=== PATIENT | male | born 1955 | race Caucasian/White ===

== ENCOUNTER 2021-05-01 00:23 | Emergency (ER) | payer MEDICARE, SELFPAY ==
[2021-05-01 01:21] VITALS: BP 163/92; PULSE 69; RESP 16; TEMP 36.6; O2SAT 96; BMI 30.5
[2021-05-01 02:25] VITALS: BP 145/71; PULSE 70; RESP 16; TEMP 36.8; O2SAT 95
== END 2021-05-01 03:01 | disposition left against medical advice (07) ==
PROVIDERS: Emergency Provider Emergency Medicine; PCP Internal Medicine
DX: M25.562 Pain in left knee (principal)
CPT/HCPCS: 99283

== ENCOUNTER 2021-12-26 06:57 | Emergency (ER) | payer MEDICARE, SELFPAY ==
--- NOTE | ~2021-12-26 | XR_ITS ---
EXAMINATION: XR CHEST CLINICAL INFORMATION: Cough COMPARISON: Chest 09/22/2017 TECHNIQUE: 2 views of the chest were obtained. FINDINGS: No significant abnormality is noted involving the heart, lungs, mediastinum, bony thorax or soft tissues. XR/XR chest 2V IMPRESSION: Unremarkable chest examination.
[2021-12-26 07:02] VITALS: BP 149/76; PULSE 87; RESP 22; TEMP 38.3; O2SAT 97; BMI 27.4
[2021-12-26 07:53] LABS: Influenza A PCR NEGATIVE (Negative); Influenza B PCR NEGATIVE (Negative); Resp Syncy Virus RNA Qual PCR NEGATIVE (Negative); SARS COV2 PCR INHOUSE NEGATIVE (Negative)
--- NOTE | 2021-12-26 08:46 | ECG_ITS ---
Test Reason : cp when coughing Blood Pressure : / mmHG Vent. Rate : 073 BPM Atrial Rate : 073 BPM P-R Int : 152 ms QRS Dur : 098 ms QT Int : 384 ms P-R-T Axes : 030 011 051 degrees QTc Int : 423 ms Normal sinus rhythm Normal ECG When compared with ECG of 22-SEP-2017 09:48, No significant change was found Referred By: Lisa Gipson Electronically Signed By:ABRAN REYES
[2021-12-26] MEDS: Ibuprofen 600 MG TABLET PO (08:53)
[2021-12-26] MEDS: Albuterol/Iprat 2.5/0.5MG 3 ML AMPUL.NEB INHALE (08:57)
[2021-12-26 08:58] VITALS: PULSE 87; RESP 18; O2SAT 97
[2021-12-26] MEDS: Benzonatate 100 MG CAPSULE 200 MG PO (09:11)
[2021-12-26 09:12] LABS: MANUAL DIFF FLAG NO
[2021-12-26 09:14] LABS: Basophils Percent Auto 0.4 % (0-2); Eosinophils Absolute Auto 0.3 X10*3/uL (0.0-0.4); Eosinophils Percent Auto 2.6 % (0-4); Hematocrit 37.9 % (42.0-52.0); Hemoglobin 12.2 g/dl (14.0-18.0); Imm Gran Abs Auto 0.04 X10*3/uL (0.00-0.03); Imm Gran Pct Auto 0.4 % (0.0-0.4); Lymphocytes Absolute Auto 1.9 X10*3/uL (1.2-4.9); Lymphocytes Percent Auto 16.9 % (20-40); Mean Corpuscular HGB Conc 32.2 g/dl (31.0-36.0); Mean Corpuscular Hemoglobin 26.5 pg (27.0-33.0); Mean Corpuscular Volume 82.4 fL (80.0-98.0); Mean Platelet Volume 8.8 fL (9.4-12.4); Monocytes Absolute Auto 1.1 X10*3/uL (0.1-1.2); Monocytes Percent Auto 9.7 % (2-11); Neutrophils Absolute Auto 7.9 x10*3/uL (2.0-8.3); Platelet Count 170 X10*3/uL (160-400); Red Cell Distribution Width 15.7 % (11.0-16.0); White Blood Count 11.2 X10*3/uL (4.8-10.8)
--- NOTE | 2021-12-26 09:27 | ED.GENADULT ---
HPI - General Adult General Chief complaint: General Medical <MARILEE Cabrera - Last Filed: 12/26/21 12:40> Stated complaint: cough congestion <MARILEE Cabrera Last Filed: 12/26/21 12:40> Time Seen by Provider: 12/26/21 07:08 <MARILEE Cabrera - Last Filed: 12/26/21 12:40> Source: patient <MARILEE Cabrera Last Filed: 12/26/21 12:40> Mode of arrival: ambulatory <MARILEE Cabrera Last Filed: 12/26/21 12:40> History of Present Illness HPI narrative: 66-year-old male with a PMHx HLD, HTN, CKD, TIA, CAD s/p stent, presenting to the ED complaining of dry cough, congestion, rhinorrhea, sore throat, SOB, and rib pain when coughing x1 week. Reports SOB worse on exertion and when lying flat. States symptoms began after he kissed his sick grandson. Denied known fever BARYTES GRINDER, chest pain, abdominal pain, nausea/vomiting, pedal edema, calf pain, recent travel, ear pain, pain with inspiration <MARILEE Cabrera Last Filed: 12/26/21 12:40> Onset (ago): week(s) <MARILEE Cabrera - Last Filed: 12/26/21 12:40> Related Data Home medications: Previous Rx's Medication Instructions Recorded albuterol sulfate 90 mcg/actuation 2 puff INHALATION Q4-6H PRN #6.7 g 12/26/21 aerosol inhaler azithromycin 250 mg tablet See Rx Instructions .ROUTE 12/26/21 .COMPLEX #6 tab benzonatate 200 mg capsule 200 mg PO TID PRN #20 cap 12/26/21 fluticasone propionate 50 2 spray INTRANASAL DAILY #16 g 12/26/21 mcg/actuation nasal spray,suspension (Flonase Allergy Relief) <MARILEE Cabrera Last Filed: 12/26/21 12:40> Allergies/adverse reactions: Allergies Allergy/AdvReac Type Severity Reaction Status Date / Time acetaminophen [Vicodin] Allergy Unknown Rash Verified 05/01/21 01:20 hydrocodone [Vicodin] Allergy Unknown Rash Verified 05/01/21 01:20 From VICODIN Allergy Mild RASH Uncoded 07/01/20 14:39 <MARILEE Cabrera - Last Filed: 12/26/21 12:40> Review of Systems Review of Systems: Constitutional: + Fever, No Chills, No Night Sweats, + Fatigue, No Malaise ENT/Mouth: No Hearing loss, No Ear Pain, + Nasal Congestion, No Sinus Pain, No Hoarseness, + sore throat, + Rhinorrhea, No Swallowing Difficulty Eyes: No Eye Pain, No Swelling, No Discharge, No Vision Changes Cardiovascular: + Chest Pain when coughing, + SOB, + Dyspnea on Exertion, + Orthopnea, No Edema, No Palpitations Respiratory: + Cough, No Sputum, No Wheezing, No Dyspnea Gastrointestinal: No Nausea, No Vomiting, No Diarrhea, No Constipation, No Abdominal pain Genitourinary: No Dysuria, No Urinary Frequency, No Urgency, No Flank Pain Musculoskeletal: No joint pain, No Myalgias, No Joint Swelling Skin: No Skin Lesions, No rash Neuro: No Weakness, No Numbness, No Headache <MARILEE Cabrera - Last Filed: 12/26/21 12:40> Yes all other systems are reviewed and are negative <MARILEE Cabrera - Last Filed: 12/26/21 12:40> [facility] Past Medical History Attestation statement: The following information was validated with the patient. <MARILEE Cabrera - Last Filed: 12/26/21 12:40> Medical History: Medical History High cholesterol Hypertension Pedal edema Renal failure TIA (transient ischemic attack) <MARILEE Cabrera - Last Filed: 12/26/21 12:40> Surgical History: Surgical History Previous back surgery Stented coronary artery <MARILEE Cabrera - Last Filed: 12/26/21 12:40> Physical Exam ED Vital Signs: Vital Signs - 24 hr 12/26/21 07:02 12/26/21 08:58 12/26/21 10:48 Temperature 101 F H Pulse Rate 87 87 70 Respiratory Rate 22 H 18 18 Blood Pressure 149/76 H 121/65 Pulse Oximetry 97 94 BMI result Body Mass Index 27.4 <MARILEE Cabrera - Last Filed: 12/26/21 12:40> Const General: cooperative, healthy appearing, no acute distress, alert and awake <MARILEE Cabrera - Last Filed: 12/26/21 12:40> Orientation/consciousness: patient oriented x3 <MARILEE Cabrera - Last Filed: 12/26/21 12:40> Limitations: no limitations <MARILEE Cabrera - Last Filed: 12/26/21 12:40> HENMT Head: Yes normal to inspection <MARILEE Cabrera - Last Filed: 12/26/21 12:40> Ears: hearing grossly normal bilaterally, external ears normal, TM's normal bilaterally and mastoids normal <MARILEE Cabrera - Last Filed: 12/26/21 12:40> General nose exam: Normal external nose present <MARILEE Cabrera - Last Filed: 12/26/21 12:40> Face and sinus: Yes normal facial exam <MARILEE Cabrera - Last Filed: 12/26/21 12:40> Mouth: Normal oral and palatal mucosa present <MARILEE Cabrera - Last Filed: 12/26/21 12:40> Throat: Yes posterior oropharynx normal, Yes tonsils normal, Yes uvula midline and No uvula laterally displaced <MARILEE Cabrera - Last Filed: 12/26/21 12:40> Eyes General: appearance normal, both eyes and all related structures <MARILEE Cabrera - Last Filed: 12/26/21 12:40> EOM: EOMs intact bilaterally <MARILEE Cabrera - Last Filed: 12/26/21 12:40> Neck Neck: Yes normal visual inspection and Yes no meningeal signs <MARILEE Cabrera - Last Filed: 12/26/21 12:40> Resp Effort & Inspection: normal respiratory effort and no respiratory distress <MARILEE Cabrera - Last Filed: 12/26/21 12:40> Auscultation: clear to auscultation bilaterally, no rales, no rhonchi and no wheezes <MARILEE Cabrera - Last Filed: 12/26/21 12:40> Cardio Rate: regular rate <MARILEE Cabrera - Last Filed: 12/26/21 12:40> Heart sounds: S1 normal heart sound present and S2 normal heart sound present <MARILEE Cabrera - Last Filed: 12/26/21 12:40> GI Inspection: Yes normal to inspection <MARILEE Cabrera - Last Filed: 12/26/21 12:40> Palpation (GI): Soft to palpation, nontender, no guarding and not rigid <MARILEE Cabrera - Last Filed: 12/26/21 12:40> Skin Rashes: no rashes <MARILEE Cabrera - Last Filed: 12/26/21 12:40> Wounds: no wounds <MARILEE Cabrera - Last Filed: 12/26/21 12:40> Neuro General: patient oriented x3 and no meningeal signs <MARILEE Cabrera - Last Filed: 12/26/21 12:40> Gait exam (Neuro): Normal gait present <MARILEE Cabrera - Last Filed: 12/26/21 12:40> Extrem General: Yes normal to inspection, Yes no pedal edema and Yes no calf tenderness <MARILEE Cabrera - Last Filed: 12/26/21 12:40> Course Course Course Narrative: -COVID-19/influenza/RSV negative -CXR unremarkable -0934--mild leukocytosis of 11.2, troponin 7.6 > will obtain 3 hour repeat -1236--repeat troponin equivocal, mi unlikely. Results discussed with patient including worrisome signs and symptoms and strict return precautions and need close follow-up with PCP, he verbalized understanding and feel safe for discharge home at this time <MARILEE Cabrera - Last Filed: 12/26/21 12:40> Medical Decision Making MDM Narrative Medical decision making narrative: 66-year-old male with a PMHx HLD, HTN, CKD, TIA, CAD s/p stent, presenting to the ED complaining of dry cough, congestion, rhinorrhea, sore throat, SOB, and rib pain when coughing x1 week. On exam febrile, tachypneic likely from fever, NAD/nontoxic, lungs CTA, abdomen soft nontender, no pedal edema/calf tenderness. Concern for viral syndrome including COVID-19 and influenza vs bronchitis vs pneumonia. Low concern for ACS/PE. Low concern for severe sepsis Plan: COVID-19 testing, influenza testing, rapid strep, labs, CXR, DuoNeb <MARILEE Cabrera - Last Filed: 12/26/21 12:40> Medical Records Medical records reviewed: Yes I reviewed the patient's medical records. <MARILEE Cabrera - Last Filed: 12/26/21 12:40> Lab Data Lab results reviewed: Yes I reviewed the patient's lab results. <MARILEE Cabrera - Last Filed: 12/26/21 12:40> Result diagrams: : 12/26/21 09:07 12/26/21 09:07 <MARILEE Cabrera - Last Filed: 12/26/21 12:40> Labs: Lab Results 12/26/21 12/26/21 12/26/21 Range/Units 07:08 09:07 09:07 WBC 11.2 H (4.8-10.8) X10*3/uL RBC 4.60 (4.60-5.80) X10*6/uL Hgb 12.2 L (14.0-18.0) g/dl Hct 37.9 L (42.0-52.0) % MCV 82.4 (80.0-98.0) fL MCH 26.5 L (27.0-33.0) pg MCHC 32.2 (31.0-36.0) g/dl RDW 15.7 (11.0-16.0) % Plt Count 170 (160-400) X10*3/uL MPV 8.8 L (9.4-12.4) fL Immature Gran % (Auto) 0.4 (0.0-0.4) % Neut % (Auto) 70.0 (45-73) % Lymph % (Auto) 16.9 L (20-40) % [place] % (Auto) 9.7 (2-11) % Eos % (Auto) 2.6 (0-4) % Baso % (Auto) 0.4 (0-2) % Lymph # (Auto) 1.9 (1.2-4.9) X10*3/uL [place] # (Auto) 1.1 (0.1-1.2) X10*3/uL Eos # (Auto) 0.3 (0.0-0.4) X10*3/uL Baso # (Auto) 0.0 (0.0-0.2) X10*3/uL Abs Immat Gran (auto) 0.04 H (0.00-0.03) X10*3/uL Absolute Neuts (auto) 7.9 (2.0-8.3) x10*3/uL Absolute Nucleated RBC 0.000 (0.0-0.012) X10*3/uL Nucleated RBC % (auto) 0.0 (0.0-0.2) /100WBC Sodium 139 (135-145) mmol/L Potassium 4.2 (3.3-5.1) mmol/L Chloride 102 (96-108) mmol/L Carbon Dioxide 29 (22-29) mmol/L Anion Gap 12 (12-20) BUN 11 (9-16) mg/dL Creatinine 1.05 (0.5-1.4) mg/dL Estim Creat Clear Calc 65.4 Estimated GFR > 60 Random Glucose 121 H (60-115) mg/dL Calcium 9.5 (8.4-10.2) mg/dL Magnesium 1.7 (1.6-2.6) mg/dL Total Bilirubin 0.6 (0.0-1.0) mg/dL Direct Bilirubin 0.3 (0.0-0.5) mg/dL AST 14 (5-37) U/L ALT 13 (0-40) U/L Alkaline Phosphatase 103 (39-117) U/L Troponin I High Sens (<3.5-35.0) ng/L B-Natriuretic Peptide (<100) pg/mL Total Protein 7.2 (6.5-8.0) g/dL Albumin 4.4 (3.5-5.0) g/dL Influenza Type A (PCR) NEGATIVE (Negative) Influenza Type B (PCR) NEGATIVE (Negative) RSV RNA Qual (PCR) NEGATIVE (Negative) SARS-CoV-2 RNA (RT-PCR) NEGATIVE (Negative) 03/14/22 03/14/22 Range/Units 09:07 11:47 WBC (4.8-10.8) X10*3/uL RBC (4.60-5.80) X10*6/uL Hgb (14.0-18.0) g/dl Hct (42.0-52.0) % MCV (80.0-98.0) fL MCH (27.0-33.0) pg MCHC (31.0-36.0) g/dl RDW (11.0-16.0) % Plt Count (160-400) X10*3/uL MPV (9.4-12.4) fL Immature Gran % (Auto) (0.0-0.4) % Neut % (Auto) (45-73) % Lymph % (Auto) (20-40) % [place] % (Auto) (2-11) % Eos % (Auto) (0-4) % Baso % (Auto) (0-2) % Lymph # (Auto) (1.2-4.9) X10*3/uL [place] # (Auto) (0.1-1.2) X10*3/uL Eos # (Auto) (0.0-0.4) X10*3/uL Baso # (Auto) (0.0-0.2) X10*3/uL Abs Immat Gran (auto) (0.00-0.03) X10*3/uL Absolute Neuts (auto) (2.0-8.3) x10*3/uL Absolute Nucleated RBC (0.0-0.012) X10*3/uL Nucleated RBC % (auto) (0.0-0.2) /100WBC Sodium (135-145) mmol/L Potassium (3.3-5.1) mmol/L Chloride (96-108) mmol/L Carbon Dioxide (22-29) mmol/L Anion Gap (12-20) BUN (9-16) mg/dL Creatinine (0.5-1.4) mg/dL Estim Creat Clear Calc Estimated GFR Random Glucose (60-115) mg/dL Calcium (8.4-10.2) mg/dL Magnesium (1.6-2.6) mg/dL Total Bilirubin (0.0-1.0) mg/dL Direct Bilirubin (0.0-0.5) mg/dL AST (5-37) U/L ALT (0-40) U/L Alkaline Phosphatase (39-117) U/L Troponin I High Sens 7.6 6.7 (<3.5-35.0) ng/L B-Natriuretic Peptide 40 (<100) pg/mL Total Protein (6.5-8.0) g/dL Albumin (3.5-5.0) g/dL Influenza Type A (PCR) (Negative) Influenza Type B (PCR) (Negative) RSV RNA Qual (PCR) (Negative) SARS-CoV-2 RNA (RT-PCR) (Negative) <MARILEE Cabrera - Last Filed: 12/26/21 12:40> ECG Data Attestation: I personally reviewed and interpreted this ECG as follows: <MARILEE Cabrera - Last Filed: 12/26/21 12:40> Prior ECG tracings: available for review <MARILEE Cabrera - Last Filed: 12/26/21 12:40> Interpretation: EKG normal sinus rhythm at a rate of 73. Pr interval 152. QTC 423. No STEMI. No significant change when compared to priors <MARILEE Cabrera - Last Filed: 12/26/21 12:40> Discharge Plan Discharge Clinical Impression: Acute viral syndrome, Bronchitis <MARILEE Cabrera - Last Filed: 12/26/21 12:40> Patient Disposition: Home, Self-Care <MARILEE Cabrera - Last Filed: 12/26/21 12:40> Instructions: Acute Bronchitis (ED) <MARILEE Cabrera - Last Filed: 12/26/21 12:40> Additional Instructions: You tested negative for COVID, flu, and RSV. Your chest x-ray was unremarkable Your blood work was reassuring. You likely have bronchitis. You did have a fever today, make sure your monitoring closely at home. Take Tylenol Motrin as needed to control fever Tessalon Perles for cough. Zithromax in is an antibiotic please take as prescribed. Flonase as a nasal decongestion If your symptoms persist or worsen, you fever unresolved with medications, constant worsening shortness of breath or developed chest pain please return to the emergency department Follow-up with her doctor in 2-3 days <MARILEE Cabrera - Last Filed: 12/26/21 12:40> Prescriptions: New azithromycin 250 mg tablet See Rx Instructions .ROUTE .COMPLEX Qty: 6 0RF Rx Instructions: take 500 mg today (day 1), then 250 mg for 4 days (days 2-5) benzonatate 200 mg capsule 200 mg PO TID PRN (Reason: cough) Qty: 20 0RF albuterol sulfate 90 mcg/actuation HFA aerosol inhaler 2 puff inhalation Q4-6H PRN (Reason: shortness of breath or wheezing) Qty: 6.7 0RF fluticasone propionate [Flonase Allergy Relief] 50 mcg/actuation spray,suspension 2 spray intranasal DAILY Qty: 16 0RF Rx Instructions: administer into each nostril <MARILEE Cabrera - Last Filed: 12/26/21 12:40> Referrals: Physician,Unknown J [Primary Care Provider] - 2 days <MARILEE Cabrera - Last Filed: 12/26/21 12:40> Interventions: ED Discharge Assessment Last Done: 12/26/21 12:49 <MARILEE Cabrera - Last Filed: 12/26/21 12:40> Discharge Date/Time: 12/26/21 12:53 <MARILEE Cabrera - Last Filed: 12/26/21 12:40>
[2021-12-26 09:32] LABS: B Type Natriuretic Peptide 40 pg/mL (<100); Troponin-I High Sensitivity 7.6 ng/L (<3.5-35.0)
[2021-12-26 09:38] LABS: Alanine Aminotransferase 13 U/L (0-40); Albumin Level 4.4 g/dL (3.5-5.0); Alkaline Phosphatase 103 U/L (39-117); Anion Gap 12 (12-20); Aspartate Amino Transferase 14 U/L (5-37); Bilirubin Direct 0.3 mg/dL (0.0-0.5); Bilirubin Total 0.6 mg/dL (0.0-1.0); Blood Urea Nitrogen 11 mg/dL (9-16); Calcium 9.5 mg/dL (8.4-10.2); Carbon Dioxide 29 mmol/L (22-29); Chloride 102 mmol/L (96-108); Creatinine Clr Calc Pharmacy 65.4; Estimated Glomerular Filt Rate > 60; Glucose Random 121 mg/dL (60-115); Magnesium 1.7 mg/dL (1.6-2.6); Potassium 4.2 mmol/L (3.3-5.1); Sodium 139 mmol/L (135-145); Total Protein 7.2 g/dL (6.5-8.0)
[2021-12-26 10:48] VITALS: BP 121/65; PULSE 70; RESP 18; O2SAT 94
[2021-12-26 12:17] LABS: Troponin-I High Sensitivity 6.7 ng/L (<3.5-35.0)
== END 2021-12-26 12:53 | disposition home or self-care (01) ==
PROVIDERS: Physician Assistant; Emergency Provider Emergency Medicine
DX: B34.9 Viral infection, unspecified (principal); J40 Bronchitis, not specified as acute or chronic; R50.9 Fever, unspecified; R06.02 Shortness of breath; Z20.822 Contact with and (suspected) exposure to COVID-19; E78.5 Hyperlipidemia, unspecified; I12.9 Hypertensive chronic kidney disease with stage 1 through stage 4 chronic kidney disease, or unspecified chronic kidney disease; N18.9 Chronic kidney disease, unspecified; Z86.73 Personal history of transient ischemic attack (TIA), and cerebral infarction without residual deficits
CPT/HCPCS: 0241U; 36415; 71046; 80048; 80076; 83735; 83880; 84484; 85025; 93005; 94640; 99284

== ENCOUNTER 2022-01-14 05:03 | Emergency (ER) | payer MEDICARE, SELFPAY ==
--- NOTE | ~2022-01-14 | XR_ITS ---
EXAMINATION: XR CHEST CLINICAL INFORMATION: Cough COMPARISON: 12/26/2021 TECHNIQUE: 2 views of the chest were obtained. FINDINGS: No focal consolidation, pulmonary edema, or pleural effusion. Stable cardiomediastinal silhouette. XR/XR chest 2V IMPRESSION: Unremarkable examination.
[2022-01-14 05:53] VITALS: BP 134/63; PULSE 82; RESP 18; TEMP 37.3; O2SAT 97; BMI 28.1
--- NOTE | 2022-01-14 08:30 | ED.URI ---
HPI - URI/Sore Throat General Chief Complaint: Upper Respiratory Symptoms Stated Complaint: SOB COUGH Time Seen by Provider: 01/14/22 08:17 Source: patient Mode of arrival: ambulatory Limitations: no limitations History of Present Illness HPI Narrative: 66-year-old male with a PMHx HLD, HTN, CKD, TIA, CAD s/p stent, presenting to the ED complaining subjective fevers, chills, nasal congestion/rhinorrhea, dry cough with shortness of breath/orthopnea and rib pain with coughing for the past 3 days. Reports that when this 1st started he initially had some diarrhea although that has resolved. He reports that he lives with approximately 6 individuals in his house which include his grand kids who are in daycare/preschool. He reports that he believes his grandson got him sick because his grandson has similar symptoms and his symptoms started prior to the patient's symptoms. He denies any other sick contacts. He denies any recent travel. He reports that he is vaccinated to COVID and the flu. He denies any measured fevers, dizziness, headaches, neck pain/stiffness, trouble swallowing or breathing, chest pain, dyspnea on exertion, palpitations, paresthesias, back pain, nausea/vomiting or constipation, abdominal pain, lower extremity edema or calf tenderness, rashes or any other symptoms complaints or concerns at this time. MD elicited complaint: fever, cough, rhinorrhea and nasal congestion Pertinent past history: COPD and other (See above) Onset (ago): day(s) (3) Consistency: constant and progressively worsening Severity: moderate Able to tolerate fluids by mouth: Yes Exacerbating factors: deep breaths Relieving factors: nothing Context: sick contacts (See above) and other(s) with similar symptoms Associated symptoms: fever, chills, myalgias, diaphoresis, rhinorrhea, nasal congestion, cough, shortness of breath and diarrhea Treatments prior to arrival: none Related Data Previous Rx's Medication Instructions Recorded albuterol sulfate 90 mcg/actuation 2 puff INHALATION Q4-6H PRN #6.7 g 12/26/21 aerosol inhaler azithromycin 250 mg tablet See Rx Instructions .ROUTE 12/26/21 .COMPLEX #6 tab benzonatate 200 mg capsule 200 mg PO TID PRN #20 cap 12/26/21 fluticasone propionate 50 2 spray INTRANASAL DAILY #16 g 12/26/21 mcg/actuation nasal spray,suspension (Flonase Allergy Relief) albuterol sulfate 90 mcg/actuation 1 inh INHALATION QID PRN #8.5 g 01/14/22 aerosol inhaler azithromycin 250 mg tablet See Rx Instructions PO .COMPLEX #6 01/14/22 tab benzonatate 100 mg capsule 100 mg PO BID PRN #14 cap 01/14/22 prednisone 20 mg tablet 40 mg PO DAILY 5 Days #10 tab 01/14/22 Allergies Allergy/AdvReac Type Severity Reaction Status Date / Time acetaminophen [Vicodin] Allergy Unknown Rash Verified 05/01/21 01:20 hydrocodone [Vicodin] Allergy Unknown Rash Verified 05/01/21 01:20 From VICODIN Allergy Mild RASH Uncoded 07/01/20 14:39 Review of Systems Review of Systems: Constitutional : No Weight loss, + Fever, + Chills, No Night Sweats, + Fatigue, + Malaise ENT/Mouth : No Hearing loss, No Ear Pain, + Nasal Congestion, No Sinus Pain, No Hoarseness, No sore throat, + Rhinorrhea, No Swallowing Difficulty Eyes: No Eye Pain, No Swelling, No Redness, No Foreign Body, No Discharge, No Vision Changes Cardiovascular : No Chest Pain, + SOB, No Dyspnea on Exertion, + Orthopnea, No Edema, No Palpitations Respiratory : + Cough, No Sputum, No Wheezing, No Smoke Exposure, No Dyspnea Gastrointestinal : No Nausea, No Vomiting, No Diarrhea, No Constipation, No abdominal Pain, No Hematochezia, No Melena Genitourinary : no irregular bleeding, No Dysuria, No Urinary Frequency, No Hematuria, No Urinary Incontinence, No Urgency, No Flank Pain, No Urinary Flow Changes, No Hesitancy Musculoskeletal : No joint pain, + Myalgias, No Joint Swelling Skin : No Skin Lesions, No rash Neuro : No Weakness, No Numbness, No Paresthesias, No Loss of Consciousness, No Dizziness, No Headache Psych : No Anxiety/Panic, No Depression, No SI/HI/AH/VH, No Social Issues, Heme/Lymph: No Bruising, No Bleeding,No Lymphadenopathy Endocrine : No Polyuria, No Polydipsia, No Temperature Intolerance Yes all other systems are reviewed and are negative [facility] Past Medical History Attestation statement: The following information was validated with the patient. Medical History High cholesterol Hypertension Pedal edema Renal failure TIA (transient ischemic attack) Surgical History Previous back surgery Stented coronary artery Social History Social History Advance Directives: No Advance Directives Information Provided: Yes Advance Directives on File: No Physical Exam Vital Signs: Vital Signs: Last Vital Signs Temp 99.2 F 01/14/22 05:53 Pulse 82 01/14/22 05:53 Resp 18 01/14/22 05:53 BP 134/63 01/14/22 05:53 Pulse Ox 97 01/14/22 05:53 BMI result Body Mass Index 28.1 vital signs have been reviewed as normal and appeared to be correct. Blood pressure normal. Heart rate normal. Respiration rate normal. Temperature 99.2. Oxygen saturation normal. Appearance: Alert. Oriented X3. No acute distress. Head: Normal external exam. Normocephalic. Atraumatic. Eyes: PERRLA. EOMI. Conjunctiva and sclera normal. Eyelids normal. ENT: EAC normal. TM's Normal. Pharynx normal. Uvula midline. Moist mucous membranes. No lesions/ulcerations or masses noted on the tongue. Normal voice. No trismus noted. No drooling noted. No muffled voice noted. Neck: Normal inspection. Neck supple. FROM. No adenopathy. Thyroid Normal. No meningeal signs. No neck mass noted. CVS: Normal heart rate and rhythm. Heart sound normal. Pulses normal throughout. No murmurs/rales/gallops. Respiratory: No respiratory distress. Patient reports rib cage pain with inspiration. Breath sounds normal. No wheezes/rales/rhonchi noted. Chest nontender. No crepitus is noted. No signs of trauma noted. No accessory muscle usage noted or decreased air movement noted. No signs of trauma. Abdomen: Soft and nontender. Bowel sounds normal in all 4 quadrants. No distention noted. No organomegaly noted. No visible injury noted. Back: No CVA tenderness. Full range of motion noted. Nontender. No signs of trauma. Patient neuro intact bilaterally and distally on all 4 extremities. Patient's reflexes intact bilaterally and distally on all 4 extremities. No rashes/lesion/induration/fluctuance or signs of infection noted. Skin: Skin warm and dry. Normal skin color. Normal skin turgor. No rashes/lesions/lacerations noted. Extremities: No lower extremity edema. No calf tenderness is noted. Extremities exhibit normal range of motion and nontender. Neuro: Oriented X 3. No motor deficit. No sensory deficit. Reflexes normal. Normal steady gait. No focal neuro deficits noted. CN's II-XII intact bilaterally? Vascular: + radial pulses/+ 2 distal pedal pulses/+2 dorsalis pedis b/l. Normal cap refill. No cyanosis noted to upper extremity nails and lower extremity toes nails. Course Course Course Narrative: 8:30am - 66-year-old male with a PMHx HLD, HTN, CKD, TIA, CAD s/p stent, presenting to the ED complaining subjective fevers, chills, nasal congestion/rhinorrhea, dry cough with shortness of breath/orthopnea and rib pain with coughing for the past 3 days. Reports that when this 1st started he initially had some diarrhea although that has resolved. He reports that he lives with approximately 6 individuals in his house which include his grand kids who are in daycare/preschool. He reports that he believes his grandson got him sick because his grandson has similar symptoms and his symptoms started prior to the patient's symptoms. Plan: chest x-ray, COVID swab, influenza swab Provide 100 mg of Motrin, 10 mL of Robitussin and 60 mg of prednisone then re-evaluate. Reevaluation(s) Reevaluation #1: Patient reports he needs to go to a and is requesting to leave at this time. Chest x-ray was negative for any acute processes. Patient negative for COVID. Influenza still pending. We will call him with positive or negative results and instructed him to return if any new or worsening symptoms especially if he develops any shortness of breath/chest pain or swelling of the legs and he reported that he will return if any of that does occur and high instructions to follow-up his primary care provider. Patient understands agrees with this plan. Time: 09:49 MDM - URI/Sore Throat Medical Records Attestation: I reviewed the patient's medical records. Lab Data Attestation: I reviewed the patient's lab results. Labs: Lab Results 01/14/22 Range/Units 08:18 COVID-19 ([facility]) Negative (Negative) COVID-19 Clin Com See Note Imaging Data Chest x-ray: Attestation: I personally reviewed and interpreted this imaging study as follows: Radiologist's impression: FINDINGS: No focal consolidation, pulmonary edema, or pleural effusion. Stable cardiomediastinal silhouette. XR/XR chest 2V IMPRESSION: Unremarkable examination. Discharge Plan Discharge Clinical Impression: Bronchitis Patient Disposition: Home, Self-Care Instructions: Acute Bronchitis (ED) Prescriptions: New prednisone 20 mg tablet 40 mg PO DAILY 5 Days Qty: 10 0RF albuterol sulfate 90 mcg/actuation HFA aerosol inhaler 1 inh inhalation QID PRN (Reason: shortness of breath or wheezing) Qty: 8.5 0RF azithromycin 250 mg tablet See Rx Instructions PO .COMPLEX Qty: 6 0RF Rx Instructions: take 500 mg today (day 1), then 250 mg for 4 days (days 2-5) benzonatate 100 mg capsule 100 mg PO BID PRN (Reason: cough) Qty: 14 0RF No Action azithromycin 250 mg tablet See Rx Instructions .ROUTE .COMPLEX Qty: 6 0RF Rx Instructions: take 500 mg today (day 1), then 250 mg for 4 days (days 2-5) benzonatate 200 mg capsule 200 mg PO TID PRN (Reason: cough) Qty: 20 0RF albuterol sulfate 90 mcg/actuation HFA aerosol inhaler 2 puff inhalation Q4-6H PRN (Reason: shortness of breath or wheezing) Qty: 6.7 0RF fluticasone propionate [Flonase Allergy Relief] 50 mcg/actuation spray,suspension 2 spray intranasal DAILY Qty: 16 0RF Rx Instructions: administer into each nostril Referrals: Physician,Unknown J [Primary Care Provider] - 2 days (your pcp)
[2022-01-14 08:36] LABS: COVID-19 Test Negative (Negative)
[2022-01-14] MEDS: predniSONE 20 MG TABLET 60 MG PO (09:26)
[2022-01-14] MEDS: Ibuprofen 800 MG TABLET PO (09:26)
[2022-01-14] MEDS: guaiFENesin 200 MG/10 ML 10 ML LIQUID PO (09:28)
--- NOTE | 2022-01-14 09:56 | PC.NURSE ---
no acute resp distress, asking for discharge. has a to attend
[2022-01-14 10:32] LABS: Influenza A Positive (Negative); Influenza B2 Negative (Negative)
== END 2022-01-14 09:55 | disposition home or self-care (01) ==
PROVIDERS: Physician Assistant Medical; Emergency Provider Emergency Medicine
DX: J10.1 Influenza due to other identified influenza virus with other respiratory manifestations (principal); J40 Bronchitis, not specified as acute or chronic; Z20.822 Contact with and (suspected) exposure to COVID-19; R50.9 Fever, unspecified; R06.02 Shortness of breath; I12.9 Hypertensive chronic kidney disease with stage 1 through stage 4 chronic kidney disease, or unspecified chronic kidney disease; N18.9 Chronic kidney disease, unspecified
CPT/HCPCS: 71046; 87502; 87635; 99283

== ENCOUNTER 2022-06-27 01:38 | Emergency (ER) | payer MEDICARE, SELFPAY ==
--- NOTE | ~2022-06-27 | XR_ITS ---
EXAMINATION: XR CHEST CLINICAL INFORMATION: Productive cough. Short of breath. COMPARISON: 01/14/2022 TECHNIQUE: 2 views of the chest were obtained. FINDINGS: The lungs are well expanded. There is no focal consolidation, edema, or effusion. No pneumothorax. The cardiomediastinal silhouette is within normal limits. No acute osseous abnormality. XR/XR chest 2V IMPRESSION: Clear lungs.
[2022-06-27 01:54] VITALS: BP 145/62; PULSE 72; RESP 18; TEMP 37.2; O2SAT 96; BMI 26.6
--- NOTE | 2022-06-27 05:22 | ED_ITS ---
HPI - General Adult General Chief complaint: General Medical Stated complaint: cough, diff breathing, vomit, phlegm Time Seen by Provider: 06/27/22 05:22 Source: patient Mode of arrival: ambulatory Limitations: no limitations History of Present Illness HPI narrative: grandson has a cough in daycare, no he has a cough. Patient is vaccinated but no booster. No fever worse with lying down Onset (ago): week(s) Severity: mild Relieving factors: none Exacerbating factors: none Associated symptoms: cough Related Data Previous Rx's Medication Instructions Recorded albuterol sulfate 90 mcg/actuation 2 puff inhalation Q4-6H PRN 12/26/21 aerosol inhaler shortness of breath or wheezing #6.7 grams azithromycin 250 mg tablet See Rx Instructions PO .COMPLEX #6 12/26/21 tabs benzonatate 200 mg capsule 200 mg PO TID PRN cough #20 caps 12/26/21 fluticasone propionate 50 2 spray intranasal DAILY #16 grams 12/26/21 mcg/actuation nasal spray,suspension (Flonase Allergy Relief) albuterol sulfate 90 mcg/actuation 1 inh inhalation QID PRN shortness 01/14/22 aerosol inhaler of breath or wheezing #8.5 grams azithromycin 250 mg tablet See Rx Instructions PO .COMPLEX #6 01/14/22 tabs benzonatate 100 mg capsule 100 mg PO BID PRN cough #14 caps 01/14/22 prednisone 20 mg tablet 40 mg PO DAILY rash 5 days #10 tabs 01/14/22 lttrzqagqmeyu-FD-vwjutmqjqda 2.5 20 ml PO Q4H PRN cough #118 mL 06/27/22 mg-5 mg-50 mg/5 mL oral liquid (Robitussin Cough and Cold CF) Allergies Allergy/AdvReac Type Severity Reaction Status Date / Time acetaminophen [Vicodin] Allergy Unknown Rash Verified 06/27/22 01:54 hydrocodone [Vicodin] Allergy Unknown Rash Verified 06/27/22 01:54 From VICODIN Allergy Mild RASH Uncoded 06/27/22 01:54 Review of Systems Constitutional: Constitutional: Reports no additional constitutional complaints Eyes: Eyes: Reports no additional eye complaints ENT: Denies dizziness Cardiovascular: Cardiovascular: Reports no additional cardiovascular complaints Respiratory: Respiratory: Reports as per HPI Gastrointestinal: Gastrointestinal: Reports no additional gastrointestinal complaints Musculoskeletal: Musculoskeletal: Reports no additional musculoskeletal complaints Integumentary/Breasts: Skin/Breast: Denies rash Neurologic: Reports system reviewed and no additional complaints, except as documented, Denies dizziness and Denies Sensory deficit (Neuro) Psychiatric: Psychiatric: Denies anxiety [facility] Past Medical History Medical History High cholesterol Hypertension Pedal edema Renal failure TIA (transient ischemic attack) Surgical History Previous back surgery Stented coronary artery Social History Social History Advance Directives: No Physical Exam ED Vital Signs: Vital Signs - 24 hr 06/27/22 01:54 Temperature 98.9 F Pulse Rate 72 Respiratory Rate 18 Blood Pressure 145/62 H Pulse Oximetry 96 Oxygen Delivery Method Room Air BMI result Body Mass Index 26.6 Const General: healthy appearing Nutritional Appearance: average body habitus Orientation/consciousness: oriented to person and patient oriented x3 Limitations: no limitations HENMT Head: Yes normal to inspection Ears: external ears normal General nose exam: Normal external nose present Mouth: Normal oral and palatal mucosa present and oropharynx normal Throat: Yes posterior oropharynx normal Eyes General: appearance normal, both eyes and all related structures Neck Neck: Yes normal visual inspection Chest Chest palpation & inspection: normal inspection of the chest Resp Auscultation: clear to auscultation bilaterally Cardio Jugular venous distension: no JVD Rate: regular rate Rhythm: regular rhythm Heart sounds: S1 normal heart sound present and S2 normal heart sound present GI Inspection: Yes normal to inspection Palpation (GI): Soft to palpation, nontender and No hepatosplenomegaly present Auscultation: normal bowel sounds General: Yes no CVA tenderness Back/Spine/Pelvis Back: no CVA tenderness Skin General skin exam: no rashes or lesions noted Neuro General: oriented to person and patient oriented x3 Cranial nerves: Yes CN's II-XII intact bilaterally Motor exam (neuro): 5/5 motor strength present throughout Sensory Exam: No Sensory deficit (Neuro) Extrem General: Yes normal to inspection Psych Appearance: grossly normal Course Reevaluation(s) Reevaluation #1: respiratory panel negative will dc on robitussin Time: 06:53 Medical Decision Making Lab Data Labs: Lab Results 06/27/22 Range/Units 05:38 Influenza Type A (PCR) NEGATIVE (Negative) Influenza Type B (PCR) NEGATIVE (Negative) RSV RNA Qual (PCR) NEGATIVE (Negative) SARS-CoV-2 RNA (RT-PCR) NEGATIVE (Negative) Imaging Data Chest x-ray: Radiologist's impression: FINDINGS: The lungs are well expanded. There is no focal consolidation, edema, or effusion. No pneumothorax. The cardiomediastinal silhouette is within normal limits. No acute osseous abnormality. XR/XR chest 2V IMPRESSION: Clear lungs. Discharge Plan Discharge Clinical Impression: Upper respiratory infection Patient Disposition: Home, Self-Care Instructions: Upper Respiratory Infection (ED), Viral Syndrome (ED) Prescriptions: New Robitussin Cough and Cold CF 2.5-5-50 mg/5 mL liquid 20 ml PO Q4H PRN (Reason: cough) Qty: 118 0RF No Action azithromycin 250 mg tablet See Rx Instructions .ROUTE .COMPLEX Qty: 6 0RF Rx Instructions: take 500 mg today (day 1), then 250 mg for 4 days (days 2-5) benzonatate 200 mg capsule 200 mg PO TID PRN (Reason: cough) Qty: 20 0RF albuterol sulfate 90 mcg/actuation HFA aerosol inhaler 2 puff inhalation Q4-6H PRN (Reason: shortness of breath or wheezing) Qty: 6.7 0RF fluticasone propionate [Flonase Allergy Relief] 50 mcg/actuation spray,suspen maylin 2 spray intranasal DAILY Qty: 16 0RF Rx Instructions: administer into each nostril prednisone 20 mg tablet 40 mg PO DAILY 5 Days Qty: 10 0RF albuterol sulfate 90 mcg/actuation HFA aerosol inhaler 1 inh inhalation QID PRN (Reason: shortness of breath or wheezing) Qty: 8.5 0RF azithromycin 250 mg tablet See Rx Instructions PO .COMPLEX Qty: 6 0RF Rx Instructions: take 500 mg today (day 1), then 250 mg for 4 days (days 2-5) benzonatate 100 mg capsule 100 mg PO BID PRN (Reason: cough) Qty: 14 0RF Referrals: Physician,Unknown J [Primary Care Provider] - 1 week
[2022-06-27 06:19] LABS: Influenza A PCR NEGATIVE (Negative); Influenza B PCR NEGATIVE (Negative); Resp Syncy Virus RNA Qual PCR NEGATIVE (Negative); SARS COV2 PCR INHOUSE NEGATIVE (Negative)
== END 2022-06-27 07:48 | disposition home or self-care (01) ==
PROVIDERS: Emergency Provider Emergency Medicine
DX: J06.9 Acute upper respiratory infection, unspecified (principal); R05.9 Cough, unspecified; E78.00 Pure hypercholesterolemia, unspecified; I10 Essential (primary) hypertension; Z20.822 Contact with and (suspected) exposure to COVID-19; Z86.73 Personal history of transient ischemic attack (TIA), and cerebral infarction without residual deficits; Z79.899 Other long term (current) drug therapy
CPT/HCPCS: 0241U; 71046; 99283

== ENCOUNTER 2022-09-25 12:28 | Outpatient (REF) | payer MEDICARE, SELFPAY ==
[2022-09-25 13:52] LABS: Alanine Aminotransferase 16 U/L (0-40); Albumin Level 4.6 g/dL (3.5-5.0); Alkaline Phosphatase 120 U/L (39-117); Anion Gap 13 (12-20); Aspartate Amino Transferase 19 U/L (5-37); Bilirubin Total 0.6 mg/dL (0.0-1.0); Blood Urea Nitrogen 23 mg/dL (9-16); Calcium 9.3 mg/dL (8.4-10.2); Carbon Dioxide 24 mmol/L (22-29); Chloride 103 mmol/L (96-108); Estimated Glomerular Filt Rate > 60; Free T4 (Free Thyroxine) 1.05 ng/dL (0.71-1.85); Glucose Random 147 mg/dL (60-115); Potassium 4.1 mmol/L (3.3-5.1); Sodium 136 mmol/L (135-145); Thyroid Stimulating Hormone 3.58 uIU/mL (0.32-4.0); Total Protein 7.4 g/dL (6.5-8.0)
== END 2022-09-25 12:29 | disposition home or self-care (01) ==
LOC: HO.LAB 12:28
PROVIDERS: Visit Provider Nurse Practitioner Psychiatric/Mental Health
DX: F31.12 Bipolar disorder, current episode manic without psychotic features, moderate (principal); F14.20 Cocaine dependence, uncomplicated; F19.20 Other psychoactive substance dependence, uncomplicated
CPT/HCPCS: 80053; 84439; 84443

== ENCOUNTER 2022-10-03 13:00 | Outpatient (RCR) | payer MEDICARE, SELFPAY ==
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
[2022-09-25 12:05] VITALS: BP 120/72; PULSE 68; RESP 16; TEMP 36.9
[2022-09-25 12:15] VITALS: BMI 28.4
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
[2022-09-26 13:29] LABS: Amphetamine Screen Urine Not Detected (Not Detect); Barbiturates, Urine Not Detected (Not Detect); Benzodiazepines Screen Urine Not Detected (Not Detect); Cannabinoid Screen Urine Not Detected (Not Detect); Cocaine Screen Urine Not Detected (Not Detect); Fentanyl, urine Not Detected (Not Detect); Opiate Screen Urine Not Detected (Not Detect); Phencyclidine Screen Urine Not Detected (Not Detect)
--- NOTE | 2022-09-26 15:35 | HO.PHPIOP ---
I met with pt and discussed aftercare, schedule and treatment plan.
--- NOTE | 2022-09-27 15:36 | HO.PHPIOP ---
I referred pt to [facility] family and Counseling at his request. They are holing an appt for him to see Dr. Arnaud Mclaughlin on 11/03/22 for med management. He will be given paperwork to complete in order for him to keep this appointment. He will receive a therapist in the following 3-5 weeks. Pt will be off on 10/02 for a neurology appointment.
--- NOTE | 2022-09-28 15:28 | HO.PHPIOP ---
Case opened in treatment team.
--- NOTE | 2022-10-03 14:56 | HO.PHPPROGNO ---
Subjective Subjective Date of Service: 10/03/22 Reason For Visit: unspecified bipolar Interim History: Describes mood as ?okay ?. Reports having physical pain in neck today from arthritis. Stopped Depakote after 3 days, states that it made him wake-up in a rage . Reports his level of pain at present is making him have a hard time concentrating. Finding program helpful. States that it is difficult to hear people at times due to his poor hearing. Would prefer to not have any psychiatric medications at this time. Medication Compliance: Intermittent Side effects from medications: Yes Attending Groups: Yes Review of Systems Acute medical concerns: No Medical Review of Systems: unchanged Review of Systems Review of Systems arthritic pain Yes all other systems are reviewed and are negative Constitutional: Reports body ache(s) Mental Status Exam Mental Status Exam Narrative: NAD. Denies SI/HI, AH/VH. Patient Appearance: Appropriate Patient Orientation: Person, Place, Time and Situation Level of Consciousness: Awake, Appropriate and Alert Patient Behavior: Appropriate, Cooperative and Good Eye Contact Mood Description: Appropriate Affect Description: Appropriate Patient Cognition Impaired: No Ability to Follow Directions: Good Speech Pattern: Clear and Appropriate Memory Description: Intact Hallucinations: None Delusions: Not Present Thought Process: Intact Thought Content: positive for Intact Depressive Symptoms: Increased Anxiety and Difficulty Sleeping Judgement: Fair Diagnostics Vital Signs (24Hr): BMI result Body Mass Index 28.4 Assessment & Plan Assessment & Plan (1) Bipolar disorder, unspecified: Status: Acute Code(s): F31.9 - Bipolar disorder, unspecified Assessment and Plan: Reports only took Depakote for 3 days, and that made him wake up in a rage. Does not want any psychiatric medications at this time. Finding program helpful. However, has difficulty hearing others during group at times due to his poor hearing. He also reports he is feeling discomfort today due to arthritis pain. No SI, HI, AH, VH. Feels safe. Reports he feels his mood has been stable. (2) Cocaine dependence, uncomplicated: Status: Acute Code(s): F14.20 - Cocaine dependence, uncomplicated Assessment and Plan: No cocaine use, no withdrawals, no cravings. Plan 1. Discontinue Depakote. 2. Continue with current [facility] plan of care. 3. Follow-up as per protocol. Patient educated on: diagnosis and therapeutic strategies Informed Consent: understands Reason for contiued partial hosp. stay Substantial Risk for: inability to function Certification I certify that partial hospital treatment is medically necessary due to the symptoms and problems resulting from the patient's mental illness and the failure to treat the patient at the partial hospital level of care would likely result in the patient requiring inpatient psychiatric care which could not be prevented at a less intensive level of care. Total time managing care of this patient today __20__ minutes. Discharge Plan Discharge Attending provider: Dennys Carter Medications: No Action aspirin 325 mg tablet,delayed release (DR/EC) 1 tab PO DAILY atorvastatin 40 mg tablet 1 tab PO DAILY hydrochlorothiazide 25 mg tablet 0.5 tab PO DAILY losartan 50 mg tablet 1 tab PO DAILY amlodipine 10 mg tablet 1 tab PO DAILY omeprazole 20 mg capsule,delayed release(DR/EC) 1 cap PO DAILY
--- NOTE | 2022-10-05 15:27 | HO.PHPIOP ---
Case opened in treatment team.
--- NOTE | 2022-10-06 09:28 | PC.NURSE ---
Real did not show up to the program this morning. I spoke to Real and he stated he is still sick. [facility] staff is aware.
== END 2022-10-03 23:59 | disposition home or self-care (01) ==
LOC: HO.PHPA 13:00
PROVIDERS: Nurse Practitioner Psychiatric/Mental Health; Visit Provider Psychiatry & Neurology Psychiatry
DX: F31.9 Bipolar disorder, unspecified (principal); F14.20 Cocaine dependence, uncomplicated; Z79.899 Other long term (current) drug therapy
CPT/HCPCS: 80307; 90853

== ENCOUNTER 2022-11-05 20:16 | Emergency (ER) | payer MEDICARE, SELFPAY ==
--- NOTE | 2022-11-05 | ECG_ITS ---
Test Reason : CHEST PAIN Blood Pressure : / mmHG Vent. Rate : 074 BPM Atrial Rate : 074 BPM P-R Int : 144 ms QRS Dur : 094 ms QT Int : 386 ms P-R-T Axes : 055 020 055 degrees QTc Int : 428 ms Normal sinus rhythm Normal ECG When compared with ECG of 26-DEC-2021 08:52, No significant change was found Referred By: Generic ED Physician Electronically Signed By:ABRAN REYES
--- NOTE | ~2022-11-05 | XR_ITS ---
EXAMINATION: XR CHEST CLINICAL INFORMATION: Chest tightness. COMPARISON: Chest radiograph done on 06/27/2022. TECHNIQUE: 2 views of the chest were obtained. FINDINGS: Subtle asymmetric airspace opacities noted at right lung base medially, in the appropriate clinical setting may represent evolving pneumonia, new since 06/27/2022. The remainder of the lung gutiérrez appear bilaterally clear. The cardiomediastinal silhouette is within normal limit. No evidence of any pleural effusion or pneumothorax. The visualized upper abdomen is unremarkable.. XR/XR chest 2V IMPRESSION: Subtle asymmetric airspace opacity at right lung base medially, may represent evolving pneumonia in the appropriate clinical setting, new since 06/27/2022. Follow-up radiograph to resolution is recommended.
[2022-11-05 20:52] VITALS: BP 160/77; PULSE 75; RESP 16; TEMP 36.7; O2SAT 95; BMI 28.6
[2022-11-05 21:07] LABS: MANUAL DIFF FLAG NO
[2022-11-05 21:08] LABS: Basophils Percent Auto 0.4 % (0-2); Eosinophils Absolute Auto 0.2 X10*3/uL (0.0-0.4); Eosinophils Percent Auto 1.4 % (0-4); Hematocrit 42.3 % (42.0-52.0); Hemoglobin 14.5 g/dl (14.0-18.0); Imm Gran Abs Auto 0.07 X10*3/uL (0.00-0.03); Imm Gran Pct Auto 0.6 % (0.0-0.4); Lymphocytes Absolute Auto 2.7 X10*3/uL (1.2-4.9); Lymphocytes Percent Auto 23.7 % (20-40); Mean Corpuscular HGB Conc 34.3 g/dl (31.0-36.0); Mean Corpuscular Volume 81.8 fL (80.0-98.0); Mean Platelet Volume 8.9 fL (9.4-12.4); Monocytes Absolute Auto 1.3 X10*3/uL (0.1-1.2); Monocytes Percent Auto 11.6 % (2-11); Neutrophils Percent Auto 62.3 % (45-73); Platelet Count 233 X10*3/uL (160-400); Red Blood Count 5.17 X10*6/uL (4.60-5.80); Red Cell Distribution Width 14.1 % (11.0-16.0); White Blood Count 11.2 X10*3/uL (4.8-10.8)
[2022-11-05 21:30] LABS: Alanine Aminotransferase 18 U/L (0-40); Albumin Level 4.6 g/dL (3.5-5.0); Alkaline Phosphatase 115 U/L (39-117); Anion Gap 13 (12-20); Aspartate Amino Transferase 18 U/L (5-37); Bilirubin Total 0.6 mg/dL (0.0-1.0); Blood Urea Nitrogen 30 mg/dL (9-16); Calcium 9.5 mg/dL (8.4-10.2); Carbon Dioxide 26 mmol/L (22-29); Chloride 101 mmol/L (96-108); Creatinine Clr Calc Pharmacy 49.3; Estimated Glomerular Filt Rate 51; Glucose Fasting 126 mg/dL (60-99); Sodium 136 mmol/L (135-145); Total Protein 7.5 g/dL (6.5-8.0)
[2022-11-05 21:37] LABS: Troponin-I High Sensitivity 9.4 ng/L (<3.5-35.0)
--- NOTE | 2022-11-05 22:03 | ED.GENADULT ---
HPI - General Adult General Chief complaint: General Medical Stated complaint: chest pain when coughing Time Seen by Provider: 11/05/22 22:02 Source: patient Mode of arrival: ambulatory Limitations: no limitations History of Present Illness HPI narrative: 67-year-old male who presents emergency department for evaluation of cough, chest pain and shortness of breath x3 days. Patient states that his grandson was sick with a cold 1 week prior and believes these caught his grandson's cold. Patient states that he has had a very persistent, nonproductive cough which is occasionally productive of yellow phlegm that is blood tinged he states that he feels short of breath and shortness of breath is worse with lying down. He also has chest pain with coughing. He states that he gets severe, sharp, bilateral chest pain with coughing. He states he is having mild dyspnea on exertion as well. Patient states that he has had multiple episodes of pneumonia in the past and he feels like he has pneumonia again. The patient is a smoker. He smokes 1 pack of cigarettes per day for at least 15 years. He states he has received 3 Moderna COVID-19 vaccinations Related Data Home Medications Medication Instructions Recorded Confirmed amlodipine 10 mg tablet 1 tab PO DAILY 09/25/22 09/25/22 aspirin 325 mg tablet,delayed 1 tab PO DAILY 09/25/22 09/25/22 release atorvastatin 40 mg tablet 1 tab PO DAILY 09/25/22 09/25/22 hydrochlorothiazide 25 mg tablet 0.5 tab PO DAILY 09/25/22 09/25/22 losartan 50 mg tablet 1 tab PO DAILY 09/25/22 09/25/22 omeprazole 20 mg capsule,delayed 1 cap PO DAILY 09/25/22 09/25/22 release Previous Rx's Medication Instructions Recorded amoxicillin 500 mg capsule 1,000 mg PO BID 5 days #20 caps 11/05/22 azithromycin 250 mg tablet See Rx Instructions PO .COMPLEX #6 11/05/22 (Zithromax Z-Ford) tabs Allergies Allergy/AdvReac Type Severity Reaction Status Date / Time acetaminophen [Vicodin] Allergy Unknown Rash Verified 06/27/22 01:54 hydrocodone [Vicodin] Allergy Unknown Rash Verified 06/27/22 01:54 From VICODIN Allergy Mild RASH Uncoded 06/27/22 01:54 Review of Systems Review of Systems: Yes all other systems are reviewed and are negative PMFSH Past Medical History [facility] Narrative: Social history: The patient does smoke 1 pack of cigarettes per day times 15 years. He denies alcohol use. He denies drug use. Medical History Acid reflux Arthritis Cardiomyopathy Chronic pain syndrome CKD (chronic kidney disease) stage 2, GFR 60-89 ml/min Coronary artery disease CVA (cerebral vascular accident) High cholesterol Hypertension Meniere disease Neck pain Osteoarthritis Pedal edema Pre-diabetes Pulmonary nodules Renal failure Restless leg syndrome Sleep apnea TIA (transient ischemic attack) Unspecified mood [affective] disorder Urinary frequency Surgical History History of ERCP History of hip replacement Previous back surgery Stented coronary artery Family History Family History Other Unspecified mood [affective] disorder Social History Social History Household Members: Spouse, Children and Other Household Members Other:: Grandson Patient Tobacco Use Status: Former Tobacco user Tobacco use type: Cigarette Advance Directives: No Advance Directives Information Provided: No Physical Exam ED Vital Signs: Vital Signs - 24 hr 11/05/22 20:52 Temperature 98.1 F Pulse Rate 75 Respiratory Rate 16 Blood Pressure 160/77 H Pulse Oximetry 95 Oxygen Delivery Method Room Air BMI result Body Mass Index 28.6 Const General: cooperative and no acute distress Orientation/consciousness: oriented to person and oriented to place Limitations: no limitations [facility] Head: Yes normal to inspection, Yes normocephalic and Yes atraumatic Ears: external ears normal General nose exam: Normal external nose present Face and sinus: Yes normal facial exam Mouth: Normal oral and palatal mucosa present Throat: Yes posterior oropharynx normal Eyes General: appearance normal, both eyes and all related structures Pupils: Equal, round and reactive pupils present Neck Neck: Yes normal visual inspection, Yes no lymphadenopathy, Yes trachea midline and Yes supple Chest Chest palpation & inspection: normal inspection of the chest and normal palpation of entire chest wall Resp Effort & Inspection: normal respiratory effort and able to speak in complete sentences Auscultation: clear to auscultation bilaterally Cardio Rate: regular rate Rhythm: regular rhythm Heart sounds: S1 normal heart sound present, S2 normal heart sound present and no murmurs GI Inspection: Yes normal to inspection Palpation (GI): Soft to palpation, nontender and no guarding Auscultation: normal bowel sounds General: Yes no CVA tenderness Back/Spine/Pelvis Back: no CVA tenderness Skin General skin exam: no rashes or lesions noted Neuro General: oriented to person and oriented to place Cranial nerves: Yes CN's II-XII intact bilaterally and Yes Equal, round and reactive pupils present Cognition (Neuro): normal cognition Motor exam (neuro): 5/5 motor strength present throughout Extrem General: Yes normal to inspection Psych Appearance: grossly normal Speech and movement: Normal speech and movement present Affect: normal affect Attitude: cooperative Medical Decision Making Medical Decision Making [facility] Narrative: 67-year-old male who presents emergency department for evaluation of cough which is mainly dry but occasionally productive of yellow sputum which is blood tinged, chest pain with coughing, shortness of breath, dyspnea on exertion x3 days. The patient is a smoker . Patient's vital signs did reveal an elevated blood pressure of 160/77 otherwise were unremarkable. Patient's lung exam was unremarkable. My independent interpretation of the patient's laboratory evaluation is as follows: Patient had a CBC and CMP. Patient had an elevated BUN of 30 with a normal creatinine of 1.40. This is elevated above his baseline. Patient's glucose was elevated 126. My independent interpretation is of the patient's chest x-ray is that has a subtle right lower lobe infiltrate, this correlates with the radiology reading. Patient will be treated for bacterial pneumonia with amoxicillin 1000 mg q.12 hours x5 days and Zithromax Z-Ford x5 days. He was given his 1st dose of these medications in emergency department. He was given printed and verbal instructions and discharged home. Differential Diagnosis The differential diagnosis includes but is not limited to pneumonia, viral URI, bronchitis Lab Data [facility] Lab Attestation statement: I reviewed the patient's lab results. Please see my discussion in [facility] 11/05/22 21:03 11/05/22 21:03 Labs: Lab Results 11/05/22 11/05/22 11/05/22 Range/Units 21:03 21:03 21:03 WBC 11.2 H (4.8-10.8) X10*3/uL RBC 5.17 (4.60-5.80) X10*6/uL Hgb 14.5 (14.0-18.0) g/dl Hct 42.3 (42.0-52.0) % MCV 81.8 (80.0-98.0) fL MCH 28.0 (27.0-33.0) pg MCHC 34.3 (31.0-36.0) g/dl RDW 14.1 (11.0-16.0) % Plt Count 233 D (160-400) X10*3/uL MPV 8.9 L (9.4-12.4) fL Immature Gran % (Auto) 0.6 H (0.0-0.4) % Neut % (Auto) 62.3 (45-73) % Lymph % (Auto) 23.7 (20-40) % Yates % (Auto) 11.6 H (2-11) % Eos % (Auto) 1.4 (0-4) % Baso % (Auto) 0.4 (0-2) % Lymph # (Auto) 2.7 (1.2-4.9) X10*3/uL Yates # (Auto) 1.3 H (0.1-1.2) X10*3/uL Eos # (Auto) 0.2 (0.0-0.4) X10*3/uL Baso # (Auto) 0.0 (0.0-0.2) X10*3/uL Abs Immat Gran (auto) 0.07 H (0.00-0.03) X10*3/uL Absolute Neuts (auto) 7.0 (2.0-8.3) x10*3/uL Absolute Nucleated RBC 0.000 (0.0-0.012) X10*3/uL Nucleated RBC % (auto) 0.0 (0.0-0.2) /100WBC Sodium 136 (135-145) mmol/L Potassium 4.0 (3.3-5.1) mmol/L Chloride 101 (96-108) mmol/L Carbon Dioxide 26 (22-29) mmol/L Anion Gap 13 (12-20) BUN 30 H (9-16) mg/dL Creatinine 1.40 (0.5-1.4) mg/dL Estim Creat Clear Calc 49.3 Estimated GFR 51 Fasting Glucose 126 H (60-99) mg/dL Calcium 9.5 (8.4-10.2) mg/dL Total Bilirubin 0.6 (0.0-1.0) mg/dL AST 18 (5-37) U/L ALT 18 (0-40) U/L Alkaline Phosphatase 115 (39-117) U/L Troponin I High Sens 9.4 (<3.5-35.0) ng/L Total Protein 7.5 (6.5-8.0) g/dL Albumin 4.6 (3.5-5.0) g/dL Independent Interpretation I performed an independent interpretation of an: Plain X-Ray Interpretation: My interpretation of the patient's two view chest x-ray is as follows: right lower lobe infiltrate Radiology Impression Discussion of test interpretation with radiology: I have reviewed the radiologist's reading. (I agree with the reading) Radiologist Impression: XR/XR chest 2V IMPRESSION: Subtle asymmetric airspace opacity at right lung base medially, may represent evolving pneumonia in the appropriate clinical setting, new since 06/27/2022. Follow-up radiograph to resolution is recommended. Dictated By:Maria L Jeong MDSigned By:<Electronically signed by Maria L Jeong MD in [place]>[id number]/05/[id number] Discharge Plan Discharge Clinical Impression: Pneumonia Qualifiers: Pneumonia type: due to unspecified organism Laterality: right Lung location: lower lobe of lung Qualified Code(s): J18.9 - Pneumonia, unspecified organism Patient Disposition: Home, Self-Care Additional Instructions: Your blood work was normal. Your chest x-ray is consistent with a right lower lobe pneumonia. Take amoxicillin 500 mg pills, 2 pills every 12 hours for 5 days. Your given your 1st dose today in the emergency room at 22:00. Take your next dose tomorrow morning at 22:00 then every 12 hours. Take Zithromax (azithromycin) Z-Ford as prescribed. Day 1 take 2 pills, each day after that take 1 pill for total of 5 days. This medication states in your system for 7-10 days and continues to work despite only taking it for 5 days. Your given your day 1 dose here in the emergency department at around 22:00. Take your next dose, day 1 again at 22:00 tomorrow evening. Take ibuprofen 200 mg pills, 2 pills every 6 hours as needed for pain or fever. Take Tylenol (acetaminophen) 500 mg pills, 2 pills every 4 to 6 hours as needed for pain or fever. Follow-up with your doctor in 2 days. Please return to the emergency department if your symptoms get worse or if you develop any symptoms that are concerning to you. Prescriptions: New amoxicillin 500 mg capsule 1,000 mg PO BID 5 Days Qty: 20 0RF azithromycin [Zithromax Z-Ford] 250 mg tablet See Rx Instructions .ROUTE .COMPLEX Qty: 6 0RF Rx Instructions: take 500 mg today (day 1), then 250 mg for 4 days (days 2-5) No Action aspirin 325 mg tablet,delayed release (DR/EC) 1 tab PO DAILY atorvastatin 40 mg tablet 1 tab PO DAILY hydrochlorothiazide 25 mg tablet 0.5 tab PO DAILY losartan 50 mg tablet 1 tab PO DAILY amlodipine 10 mg tablet 1 tab PO DAILY omeprazole 20 mg capsule,delayed release(DR/EC) 1 cap PO DAILY
[2022-11-05] MEDS: Amoxicillin 500 MG CAPSULE 1000 MG PO (23:12)
[2022-11-05] MEDS: Azithromycin 500 MG TABLET PO (23:12)
--- NOTE | 2022-11-05 23:14 | PC.NURSE ---
discharge instructions given/explained, aox4, ambulates safely/independently, no apparent distress, admin meds at discharge per MAR
== END 2022-11-05 23:16 | disposition home or self-care (01) ==
PROVIDERS: Emergency Provider Emergency Medicine Emergency Medical Services
DX: J18.9 Pneumonia, unspecified organism (principal); R07.89 Other chest pain; R05.9 Cough, unspecified; Z79.899 Other long term (current) drug therapy; Z87.891 Personal history of nicotine dependence
CPT/HCPCS: 36415; 71046; 80053; 84484; 85025; 93005; 99284

== ENCOUNTER 2022-11-25 19:32 | Emergency (ER) | payer MEDICARE, SELFPAY ==
--- NOTE | 2022-11-25 | ECG_ITS ---
Test Reason : SHORT OF BREATH Blood Pressure : / mmHG Vent. Rate : 068 BPM Atrial Rate : 068 BPM P-R Int : 168 ms QRS Dur : 096 ms QT Int : 386 ms P-R-T Axes : 048 017 060 degrees QTc Int : 410 ms Normal sinus rhythm Normal ECG When compared with ECG of 05-NOV-2022 20:22, No significant change was found Referred By: Generic ED Physician Electronically Signed By:RICH CURRAN MD
--- NOTE | ~2022-11-25 | XR_ITS ---
EXAMINATION: XR CHEST CLINICAL INFORMATION: Cough. Dyspnea. COMPARISON: Chest x-ray 11/05/2022 TECHNIQUE: 2 views of the chest were obtained. FINDINGS: No significant abnormality is noted involving the heart, lungs, mediastinum, bony thorax or soft tissues. XR/XR chest 2V IMPRESSION: Unremarkable examination.
[2022-11-25 20:17] VITALS: BP 150/82; PULSE 81; RESP 24; TEMP 36.7; O2SAT 96; BMI 29.9
[2022-11-25 21:56] LABS: Basophils Percent Auto 0.4 % (0-2); Eosinophils Absolute Auto 0.2 X10*3/uL (0.0-0.4); Hematocrit 41.9 % (42.0-52.0); Hemoglobin 14.2 g/dl (14.0-18.0); Imm Gran Abs Auto 0.01 X10*3/uL (0.00-0.03); Imm Gran Pct Auto 0.2 % (0.0-0.4); Lymphocytes Absolute Auto 1.1 X10*3/uL (1.2-4.9); Lymphocytes Percent Auto 23.1 % (20-40); MANUAL DIFF FLAG SCAN; Mean Corpuscular HGB Conc 33.9 g/dl (31.0-36.0); Mean Corpuscular Hemoglobin 28.5 pg (27.0-33.0); Monocytes Absolute Auto 0.7 X10*3/uL (0.1-1.2); Neutrophils Absolute Auto 2.7 x10*3/uL (2.0-8.3); Neutrophils Percent Auto 57.3 % (45-73); Platelet Count 150 X10*3/uL (160-400); Red Blood Count 4.99 X10*6/uL (4.60-5.80); Red Cell Distribution Width 14.4 % (11.0-16.0); SCAN SMEAR FLAG 1; White Blood Count 4.8 X10*3/uL (4.8-10.8)
[2022-11-25 22:06] LABS: Troponin-I High Sensitivity 7.7 ng/L (<3.5-35.0)
[2022-11-25 22:08] LABS: Alanine Aminotransferase 37 U/L (0-40); Albumin Level 4.4 g/dL (3.5-5.0); Alkaline Phosphatase 164 U/L (39-117); Anion Gap 12 (12-20); Aspartate Amino Transferase 23 U/L (5-37); Bilirubin Total 0.7 mg/dL (0.0-1.0); Blood Urea Nitrogen 15 mg/dL (9-16); Calcium 9.1 mg/dL (8.4-10.2); Carbon Dioxide 26 mmol/L (22-29); Chloride 101 mmol/L (96-108); Creatinine Clr Calc Pharmacy 67.8; Estimated Glomerular Filt Rate > 60; Glucose Random 113 mg/dL (60-115); Potassium 3.6 mmol/L (3.3-5.1); Sodium 135 mmol/L (135-145)
[2022-11-25 22:09] LABS: IDNOW Serial# 16C4AD1C; Influenza A Negative (Negative); Influenza B2 Negative (Negative)
[2022-11-25 22:56] LABS: COVID-19 Test Negative (Negative); IDNOW Serial# 55D5AD1C
[2022-11-25 23:01] LABS: SLIDE REVIEW VERIFIED
--- NOTE | 2022-11-26 00:08 | ED_ITS ---
HPI - General Adult General Chief complaint: Dyspnea Stated complaint: Diff Breathing Time Seen by Provider: 11/25/22 23:48 Source: patient Mode of arrival: ambulatory Limitations: no limitations History of Present Illness HPI narrative: 67-year-old male with history of COPD/ asthma presents with shortness of pamela th. Symptoms started 3-4 days ago. Patient scribga's symptoms is moderate to severe. They have been progressively and slowly getting worse over the past few days. She denies any chest pain, orthopnea, PND, lower extremity edema. He denies any recent travel, surgery or immobilization. His symptoms appear to be worse with exertion. They are better with rest. Prior treatment includes Robitussin DM with improvement in his symptoms. No sick contacts. Patient does report recent upper respiratory infections and pneumonia. Patient also reports cough with clear mucus production. Related Data Home Medications Medication Instructions Recorded Confirmed amlodipine 10 mg tablet 1 tab PO DAILY 09/25/22 09/25/22 aspirin 325 mg tablet,delayed 1 tab PO DAILY 09/25/22 09/25/22 release atorvastatin 40 mg tablet 1 tab PO DAILY 09/25/22 09/25/22 hydrochlorothiazide 25 mg tablet 0.5 tab PO DAILY 09/25/22 09/25/22 losartan 50 mg tablet 1 tab PO DAILY 09/25/22 09/25/22 omeprazole 20 mg capsule,delayed 1 cap PO DAILY 09/25/22 09/25/22 release Previous Rx's Medication Instructions Recorded amoxicillin 500 mg capsule 1,000 mg PO BID 5 days #20 caps 11/05/22 azithromycin 250 mg tablet See Rx Instructions PO .COMPLEX #6 11/05/22 (Zithromax Z-Ford) tabs albuterol sulfate 90 mcg/actuation 2 puff inhalation Q6H PRN 11/26/22 aerosol inhaler shortness of breath or wheezing #6.7 grams azithromycin 250 mg tablet 250 mg PO DAILY 4 days #4 tabs 11/26/22 (Zithromax) prednisone 50 mg tablet 50 mg PO DAILY #7 tabs 11/26/22 Allergies Allergy/AdvReac Type Severity Reaction Status Date / Time acetaminophen [Vicodin] Allergy Unknown Rash Verified 06/27/22 01:54 hydrocodone [Vicodin] Allergy Unknown Rash Verified 06/27/22 01:54 From VICODIN Allergy Mild RASH Uncoded 06/27/22 01:54 Review of Systems Review of Systems: CONSTITUTIONAL: Denies weight loss, fever and chills. HEENT: Denies changes in vision and hearing. RESPIRATORY: positive SOB and cough. CV: Denies palpitations no CP. GI: Denies abdominal pain, nausea, vomiting and diarrhea. : Denies dysuria and urinary frequency. MSK: Denies myalgia and joint pain. SKIN: Denies rash and pruritus. NEUROLOGICAL: Denies headache and syncope. PSYCHIATRIC: Denies recent changes in mood. Denies anxiety and depression. All other ROS are negative unless in HPI [facility] Past Medical History Medical History Acid reflux Arthritis Cardiomyopathy Chronic pain syndrome CKD (chronic kidney disease) stage 2, GFR 60-89 ml/min Coronary artery disease CVA (cerebral vascular accident) High cholesterol Hypertension Meniere disease Neck pain Osteoarthritis Pedal edema Pre-diabetes Pulmonary nodules Renal failure Restless leg syndrome Sleep apnea TIA (transient ischemic attack) Unspecified mood [affective] disorder Urinary frequency Surgical History History of ERCP History of hip replacement Previous back surgery Stented coronary artery Family History Family History Other Unspecified mood [affective] disorder Social History Social History Household Members: Spouse, Children and Other Household Members Other:: Grandson Alcohol intake: never Patient Tobacco Use Status: Former Tobacco user Tobacco use type: Cigarette Smoked in Last 30 Days: Yes Use of substances other than those prescribed or required for medical reasons: No Advance Directives: No Advance Directives Information Provided: No Physical Exam ED Vital Signs: Vital Signs - 24 hr 11/25/22 20:17 11/26/22 00:13 Temperature 98.1 F 98.3 F Pulse Rate 81 85 Respiratory Rate 24 H 22 H Blood Pressure 150/82 H 160/88 H Pulse Oximetry 96 94 Oxygen Delivery Method Room Air Room Air BMI result Body Mass Index 29.9 GEN: Well developed, no acute distress, alert, oriented HEENT: Normocephalic, atraumatic, normal external ears, nose appears normal, no oropharyngeal edema or exudates Eyes: Normal to appearance Neck: Supple, no lymphadenopathy Respiratory: Talks in complete sentences, no respiratory distress, clear to aus cultation bilaterally Cardiovascular: Regular rate and rhythm, no murmurs rubs or gallops Abdomen: Soft, nontender, nondistended, no guarding, no rebound Back: No CVA tenderness Extremities: No clubbing cyanosis or edema Neurologic: No focal neurologic deficits, cranial nerves 2-12 intact, strength is 5/5 bilaterally, gait normal Skin: No rash Course Course Course Narrative: 67-year-old male with history of COPD/ asthma presents with shortness of breath. Symptoms have been ongoing for the past 3-4 days. Examination revealed mild hypoxia with an oxygen saturation 96% on room air. Lungs are clear to auscultation bilaterally without wheezes, crackles or rales. Has no lower extremity edema. Less likely diagnosis would include bronchitis, pneumonia, viral syndrome. Doubt PE. Has no significant risk factors for pulmonary embolus. There is no lower extremity edema, recent travel or immobilization or injury. Will treat patient with azithromycin, prednisone, albuterol. I dis cussed all results with the patient. I also discussed discharge instructions. He is aware of when to return to the emergency department for evaluation. All questions were addressed and answered. Medical Decision Making Medical Decision Making MDM Narrative: 67-year-old male with history of COPD/ asthma presents with shortness of breath. Symptoms have been ongoing for the past 3-4 days. Examination revealed mild hypoxia with an oxygen saturation 96% on room air. Lungs are clear to auscultation bilaterally without wheezes, crackles or rales. Has no lower extremity edema. Less likely diagnosis would include bronchitis, pneumonia, viral syndrome. Doubt PE. Has no significant risk factors for pulmonary embolus. There is no lower extremity edema, recent travel or immobilization or injury. Will treat patient with azithromycin, prednisone, albuterol. I discussed all results with the patient. I also discussed discharge instructions. He is aware of when to return to the emergency department for evaluation. All questions were addressed and answered. Differential Diagnosis Differential Diagnoses: The differential diagnosis associated with the presentation includes ( COPD exacerbation, asthma exacerbation, CHF, pneumonia, bronchitis doubt PE) acute asthma exacerbation Admission/Observation Consideration of admission/observation: Escalation of care including admission/observation considered Lab Data MDM Lab Attestation statement: I reviewed the patient's lab results. 11/25/22 21:30 11/25/22 21:30 Labs: Lab Results 11/25/22 11/25/22 11/25/22 Range/Units 21:30 21:30 21:30 WBC 4.8 (4.8-10.8) X10*3/uL RBC 4.99 (4.60-5.80) X10*6/uL Hgb 14.2 (14.0-18.0) g/dl Hct 41.9 L (42.0-52.0) % MCV 84.0 (80.0-98.0) fL MCH 28.5 (27.0-33.0) pg MCHC 33.9 (31.0-36.0) g/dl RDW 14.4 (11.0-16.0) % Plt Count 150 L D (160-400) X10*3/uL MPV 9.0 L (9.4-12.4) fL Immature Gran % (Auto) 0.2 (0.0-0.4) % Neut % (Auto) 57.3 (45-73) % Lymph % (Auto) 23.1 (20-40) % [place] % (Auto) 14.0 H (2-11) % Eos % (Auto) 5.0 H (0-4) % Baso % (Auto) 0.4 (0-2) % Lymph # (Auto) 1.1 L (1.2-4.9) X10*3/uL [place] # (Auto) 0.7 (0.1-1.2) X10*3/uL Eos # (Auto) 0.2 (0.0-0.4) X10*3/uL Baso # (Auto) 0.0 (0.0-0.2) X10*3/uL Abs Immat Gran (auto) 0.01 (0.00-0.03) X10*3/uL Absolute Neuts (auto) 2.7 (2.0-8.3) x10*3/uL Absolute Nucleated RBC 0.000 (0.0-0.012) X10*3/uL Nucleated RBC % (auto) 0.0 (0.0-0.2) /100WBC Smear Tech's Comments VERIFIED Sodium 135 (135-145) mmol/L Potassium 3.6 (3.3-5.1) mmol/L Chloride 101 (96-108) mmol/L Carbon Dioxide 26 (22-29) mmol/L Anion Gap 12 (12-20) BUN 15 (9-16) mg/dL Creatinine 1.04 (0.5-1.4) mg/dL Estim Creat Clear Calc 67.8 Estimated GFR > 60 Random Glucose 113 (60-115) mg/dL Calcium 9.1 (8.4-10.2) mg/dL Total Bilirubin 0.7 (0.0-1.0) mg/dL AST 23 (5-37) U/L ALT 37 (0-40) U/L Alkaline Phosphatase 164 H (39-117) U/L Troponin I High Sens 7.7 (<3.5-35.0) ng/L Total Protein 7.0 (6.5-8.0) g/dL Albumin 4.4 (3.5-5.0) g/dL COVID-19 ([facility]) (Negative) COVID-19 Clin Com Influenza Type A (CARLINE) (Negative) Influenza Type B (CARLINE) (Negative) Influenza A & B Note 11/25/22 11/25/22 Range/Units 21:30 22:34 WBC (4.8-10.8) X10*3/uL RBC (4.60-5.80) X10*6/uL Hgb (14.0-18.0) g/dl Hct (42.0-52.0) % MCV (80.0-98.0) fL MCH (27.0-33.0) pg MCHC (31.0-36.0) g/dl RDW (11.0-16.0) % Plt Count (160-400) X10*3/uL MPV (9.4-12.4) fL Immature Gran % (Auto) (0.0-0.4) % Neut % (Auto) (45-73) % Lymph % (Auto) (20-40) % [place] % (Auto) (2-11) % Eos % (Auto) (0-4) % Baso % (Auto) (0-2) % Lymph # (Auto) (1.2-4.9) X10*3/uL [place] # (Auto) (0.1-1.2) X10*3/uL Eos # (Auto) (0.0-0.4) X10*3/uL Baso # (Auto) (0.0-0.2) X10*3/uL Abs Immat Gran (auto) (0.00-0.03) X10*3/uL Absolute Neuts (auto) (2.0-8.3) x10*3/uL Absolute Nucleated RBC (0.0-0.012) X10*3/uL Nucleated RBC % (auto) (0.0-0.2) /100WBC Smear Tech's Comments Sodium (135-145) mmol/L Potassium (3.3-5.1) mmol/L Chloride (96-108) mmol/L Carbon Dioxide (22-29) mmol/L Anion Gap (12-20) BUN (9-16) mg/dL Creatinine (0.5-1.4) mg/dL Estim Creat Clear Calc Estimated GFR Random Glucose (60-115) mg/dL Calcium (8.4-10.2) mg/dL Total Bilirubin (0.0-1.0) mg/dL AST (5-37) U/L ALT (0-40) U/L Alkaline Phosphatase (39-117) U/L Troponin I High Sens (<3.5-35.0) ng/L Total Protein (6.5-8.0) g/dL Albumin (3.5-5.0) g/dL COVID-19 ([facility]) Negative (Negative) COVID-19 Clin Com See Note Influenza Type A (CARLINE) Negative (Negative) Influenza Type B (CARLINE) Negative (Negative) Influenza A & B Note See Note Independent Interpretation I performed an independent interpretation of an: Plain X-Ray ( chest no acute cardiopulmonary disease) Radiology Impression Discussion of test interpretation with radiology: I have reviewed the radiologist's reading. (IMPRESSION: Unremarkable examination. Dictated By:Kurtis Farris MDSigned By:<Electronically signed by Kurtis Farris MD in OV>11/25/[id number]) External Record Review previous emergency department visits Tests considered The following testing was considered but not selected: CT angiogram, not indicated as the patient has no risk factors for acute pulmonary embolus Prescription Management I considered prescription management with: Antibiotic Chronic Conditions Patient?s care impacted by: Other ( asthma, COPD) Discharge Plan Discharge Clinical Impression: Asthma with exacerbation Patient Disposition: Home, Self-Care Instructions: Asthma (ED), How to Use a Metered-Dose Inhaler (ED) Prescriptions: New azithromycin [Zithromax] 250 mg tablet 250 mg PO DAILY 4 Days Qty: 4 0RF Rx Instructions: start on day 2 of therapy prednisone 50 mg tablet 50 mg PO DAILY Qty: 7 0RF albuterol sulfate 90 mcg/actuation HFA aerosol inhaler 2 puff inhalation Q6H PRN (Reason: shortness of breath or wheezing) Qty: 6.7 0RF No Action aspirin 325 mg tablet,delayed release (DR/EC) 1 tab PO DAILY atorvastatin 40 mg tablet 1 tab PO DAILY hydrochlorothiazide 25 mg tablet 0.5 tab PO DAILY losartan 50 mg tablet 1 tab PO DAILY amlodipine 10 mg tablet 1 tab PO DAILY omeprazole 20 mg capsule,delayed release(DR/EC) 1 cap PO DAILY amoxicillin 500 mg capsule 1,000 mg PO BID 5 Days Qty: 20 0RF azithromycin [Zithromax Z-Ford] 250 mg tablet See Rx Instructions .ROUTE .COMPLEX Qty: 6 0RF Rx Instructions: take 500 mg today (day 1), then 250 mg for 4 days (days 2-5) Referrals: Physician,Unknown J [Primary Care Provider] - (primary care 2-3 days)
[2022-11-26 00:13] VITALS: BP 160/88; PULSE 85; RESP 22; TEMP 36.8; O2SAT 94
--- NOTE | 2022-11-26 00:25 | PC.NURSE ---
Pt. sitting upright in bed in room. Pt. anxious to leave as he's very tired and has been up since 4am. Let pt. know doctor would be in shortly. MD in to see pt. Pt. now pending medication order and d/c.
[2022-11-26] MEDS: predniSONE 20 MG TABLET 60 MG PO (00:29)
[2022-11-26] MEDS: Azithromycin 500 MG TABLET PO (00:29)
== END 2022-11-26 00:36 | disposition home or self-care (01) ==
PROVIDERS: Emergency Provider Emergency Medicine
DX: J45.901 Unspecified asthma with (acute) exacerbation (principal); R06.02 Shortness of breath; Z20.822 Contact with and (suspected) exposure to COVID-19; E11.22 Type 2 diabetes mellitus with diabetic chronic kidney disease; I12.9 Hypertensive chronic kidney disease with stage 1 through stage 4 chronic kidney disease, or unspecified chronic kidney disease; N18.2 Chronic kidney disease, stage 2 (mild); E78.5 Hyperlipidemia, unspecified; Z87.891 Personal history of nicotine dependence; Z79.82 Long term (current) use of aspirin; Z79.02 Long term (current) use of antithrombotics/antiplatelets; Z79.899 Other long term (current) drug therapy
CPT/HCPCS: 71046; 80053; 84484; 85025; 87502; 87635; 93005; 99283; 99284

== ENCOUNTER 2022-11-27 09:50 | Emergency (ER) | payer MEDICARE, SELFPAY ==
[2022-11-27 10:02] VITALS: BP 133/71; PULSE 83; RESP 36; TEMP 36.6; O2SAT 94; BMI 29.9
--- NOTE | 2022-11-27 10:28 | PC.NURSE ---
Attending at bedside patient tachypnic complaint of SOB was seen for same on Sunday reports no improvement. PAtient is smoker trying to quit sent home with rescue inhaler ineffective per patient. Some wheezing noted in bases no repsiraotry distress noted. Denies chest pain AOx 4 neuros intact. IV access obtained w orders will CTM
--- NOTE | 2022-11-27 10:31 | ECG_ITS ---
Test Reason : dyspnea Blood Pressure : / mmHG Vent. Rate : 075 BPM Atrial Rate : 075 BPM P-R Int : 164 ms QRS Dur : 098 ms QT Int : 382 ms P-R-T Axes : 059 030 065 degrees QTc Int : 426 ms Normal sinus rhythm Normal ECG When compared with ECG of 25-NOV-2022 21:22, No significant change was found Referred By: Denita Johnson Electronically Signed By:Kenji Marlow
--- NOTE | 2022-11-27 10:38 | ED.URI ---
HPI - URI/Sore Throat General Chief Complaint: Upper Respiratory Symptoms Stated Complaint: diff breathing Time Seen by Provider: 11/27/22 10:15 Source: patient and old records reviewed Mode of arrival: ambulatory Limitations: no limitations History of Present Illness HPI Narrative: 67 yo male with hx of bipolar, CAD s/p PCI with stent, COPD seen here on 11/25 with dx of COPD exacerbation - comes back with persistent runny nose making hit hard to sleep not responding to robitussin DM. He also feels she is still coughing. He cannot tolerate the azithromycin and prednisone together and has vomited each morning after taking it he tried to take it with a piece of bread but it didn't help.He uses the rescue inhaler every 4 hours. PCP sent back to ED. Labs reassuring from 11/25 and CXR negative from 11/25 MD elicited complaint: cough and rhinorrhea Pertinent past history: pneumonia Onset (ago): day(s) (4) Consistency: constant Severity: moderate Description of mucous: clear and watery Able to tolerate fluids by mouth: Yes Exacerbating factors: supine positioning Relieving factors: other (albuterol INH) Associated symptoms: rhinorrhea, cough, shortness of breath, nausea and vomiting Treatments prior to arrival: cold medicine and antibiotics Related Data Home Medications Medication Instructions Recorded Confirmed amlodipine 10 mg tablet 1 tab PO DAILY 09/25/22 09/25/22 aspirin 325 mg tablet,delayed 1 tab PO DAILY 09/25/22 09/25/22 release atorvastatin 40 mg tablet 1 tab PO DAILY 09/25/22 09/25/22 hydrochlorothiazide 25 mg tablet 0.5 tab PO DAILY 09/25/22 09/25/22 losartan 50 mg tablet 1 tab PO DAILY 09/25/22 09/25/22 omeprazole 20 mg capsule,delayed 1 cap PO DAILY 09/25/22 09/25/22 release Previous Rx's Medication Instructions Recorded amoxicillin 500 mg capsule 1,000 mg PO BID 5 days #20 caps 11/05/22 azithromycin 250 mg tablet See Rx Instructions PO .COMPLEX #6 11/05/22 (Zithromax Z-Ford) tabs albuterol sulfate 90 mcg/actuation 2 puff inhalation Q6H PRN 11/26/22 aerosol inhaler shortness of breath or wheezing #6.7 grams azithromycin 250 mg tablet 250 mg PO DAILY 4 days #4 tabs 11/26/22 (Zithromax) prednisone 50 mg tablet 50 mg PO DAILY #7 tabs 11/26/22 benzonatate 100 mg capsule 100 mg PO TID PRN cough #14 caps 11/27/22 cetirizine 10 mg tablet 10 mg PO DAILY PRN allergy 11/27/22 symptoms #30 tabs doxycycline hyclate 100 mg capsule 100 mg PO BID 7 days #14 caps 11/27/22 fluticasone furoate 27.5 1 spray intranasal DAILY PRN nasal 11/27/22 mcg/actuation nasal congestion #9.1 mL spray,suspension Allergies Allergy/AdvReac Type Severity Reaction Status Date / Time acetaminophen [Vicodin] Allergy Unknown Rash Verified 06/27/22 01:54 hydrocodone [Vicodin] Allergy Unknown Rash Verified 06/27/22 01:54 From VICODIN Allergy Mild RASH Uncoded 06/27/22 01:54 Review of Systems Review of Systems: Constitutional : No Fever, No Chills ENT/Mouth : No Hoarseness, No sore throat, pos Rhinorrhea Eyes: No Redness, No Discharge, No Vision Changes Cardiovascular : No Chest Pain, positive SOB, positive Dyspnea on Exertion, No Edema Respiratory : positive Cough, No Sputum, positive Wheezing, Gastrointestinal : No Nausea, No Vomiting, No Diarrhea, No abdominal Pain Genitourinary : No Dysuria, No Hematuria Musculoskeletal : No joint pain, No Myalgias Skin : No rash Neuro : No Weakness, No Numbness, No Headache Psych : No anxiety, depression Heme/Lymph: No Bruising, No Bleeding Endocrine : No Polyuria, No Polydipsia All other systems reviewed and are negative PMFSH Past Medical History Attestation statement: The following information was validated with the patient. Source: old records reviewed Medical History Acid reflux Arthritis Cardiomyopathy Chronic pain syndrome CKD (chronic kidney disease) stage 2, GFR 60-89 ml/min Coronary artery disease CVA (cerebral vascular accident) High cholesterol Hypertension Meniere disease Neck pain Osteoarthritis Pedal edema Pre-diabetes Pulmonary nodules Renal failure Restless leg syndrome Sleep apnea TIA (transient ischemic attack) Unspecified mood [affective] disorder Urinary frequency Surgical History History of ERCP History of hip replacement Previous back surgery Stented coronary artery Family History Family History Other Unspecified mood [affective] disorder Social History Social History Household Members: Spouse, Children and Other Household Members Other:: Grandson Alcohol intake: never Patient Tobacco Use Status: Former Tobacco user Tobacco use type: Cigarette Advance Directives: No Advance Directives Information Provided: No Physical Exam Vital Signs: Vital Signs: Last Vital Signs Temp 97.9 F 11/27/22 10:02 Pulse 64 11/27/22 11:34 Resp 22 H 11/27/22 11:34 BP 133/71 11/27/22 10:02 Pulse Ox 95 11/27/22 11:34 O2 Del Method 11/27/22 11:34 BMI result Body Mass Index 29.9 Appearance: Alert. Oriented X3. No acute distress. Eyes: Pupils equal, round and reactive to light. ENT: Pharynx normal. Neck: Normal inspection. Neck supple. CVS: Normal heart rate and rhythm. Pulses normal. Respiratory: No respiratory distress. Breath sounds normal. Abdomen: Soft and nontender. Skin: Skin warm and dry. Normal skin color. Normal skin turgor. Extremities: No lower extremity edema. No calf ttp Neuro: Oriented X 3. No motor deficit. No sensory deficit. Course Course Course Narrative: post treatment improved no hypoxia stable for DC will switch to tessalon and different medications for COPD Medications Administered Discontinued Medications Generic Name Dose Route Start Last Admin Trade Name Freq PRN Reason Stop Dose Admin Albuterol/Ipratropium 3 ml 11/27/22 10:31 11/27/22 10:49 Albuterol/Iprat 2.5/0.5mg 3 Ml Ampul.Neb INHALE 11/27/22 10:32 3 ml ONCE ONE Administration Ondansetron HCl 4 mg 11/27/22 10:32 11/27/22 10:58 Ondansetron Hcl 4 Mg/2 Ml Vial IVPUSH 11/27/22 10:33 4 mg ONCE ONE Administration Medical Decision Making Medical Decision Making MDM Narrative: 67 yo male with hx of bipolar, CAD s/p PCI with stent, COPD seen here on 11/25 with dx of COPD exacerbation sent home with albuterol INH as well as prednisone and azithromycin. He tries to take the azithromycin and prednisone together but has vomited each morning. He still feels short of breath at times and tried taking robitussin DM because he cannot sleep at night due to runny nose. At this time will need basic labs, zofran, start on zyrtec and flonase - switch to doxycycline for COPD, no hypoxia, no increased wob, recent CXR negative. He is not toxic appearing. Wells score for PE is 0 Differential Diagnosis Differential Diagnoses: The differential diagnosis associated with the presentation includes COPD, bronchitis, URI Lab Data MDM Lab Attestation statement: I reviewed the patient's lab results. 11/27/22 10:43 11/27/22 10:43 Labs: Lab Results 11/27/22 11/27/22 Range/Units 10:43 10:43 WBC 8.0 (4.8-10.8) X10*3/uL RBC 4.93 (4.60-5.80) X10*6/uL Hgb 13.9 L (14.0-18.0) g/dl Hct 41.1 L (42.0-52.0) % MCV 83.4 (80.0-98.0) fL MCH 28.2 (27.0-33.0) pg MCHC 33.8 (31.0-36.0) g/dl RDW 14.3 (11.0-16.0) % Plt Count 156 L (160-400) X10*3/uL MPV 9.3 L (9.4-12.4) fL Immature Gran % (Auto) 0.4 (0.0-0.4) % Neut % (Auto) 90.8 H (45-73) % Lymph % (Auto) 5.9 L (20-40) % [place] % (Auto) 2.8 (2-11) % Eos % (Auto) 0.0 (0-4) % Baso % (Auto) 0.1 (0-2) % Lymph # (Auto) 0.5 L (1.2-4.9) X10*3/uL [place] # (Auto) 0.2 (0.1-1.2) X10*3/uL Eos # (Auto) 0.0 (0.0-0.4) X10*3/uL Baso # (Auto) 0.0 (0.0-0.2) X10*3/uL Abs Immat Gran (auto) 0.03 (0.00-0.03) X10*3/uL Absolute Neuts (auto) 7.3 (2.0-8.3) x10*3/uL Absolute Nucleated RBC 0.000 (0.0-0.012) X10*3/uL Nucleated RBC % (auto) 0.0 (0.0-0.2) /100WBC Smear Tech's Comments VERIFIED Sodium 135 (135-145) mmol/L Potassium 4.1 (3.3-5.1) mmol/L Chloride 102 (96-108) mmol/L Carbon Dioxide 21 L (22-29) mmol/L Anion Gap 16 (12-20) BUN 15 (9-16) mg/dL Creatinine 1.14 (0.5-1.4) mg/dL Estim Creat Clear Calc 61.8 Estimated GFR > 60 Random Glucose 224 H (60-115) mg/dL Calcium 8.8 (8.4-10.2) mg/dL Total Bilirubin 0.5 (0.0-1.0) mg/dL Direct Bilirubin 0.2 (0.0-0.5) mg/dL AST 24 (5-37) U/L ALT 33 (0-40) U/L Alkaline Phosphatase 145 H (39-117) U/L C-Reactive Protein < 0.10 (< or = 0.50) mg/dL Total Protein 6.9 (6.5-8.0) g/dL Albumin 4.3 (3.5-5.0) g/dL Independent Interpretation I performed an independent interpretation of an: EKG and Plain X-Ray Interpretation: Rate: 75 Rhythm: NSR Hana: normal Normal P waves. Normal WILLIAM. Normal QRS complex. ST T wave : normal no THEODORA qTC: normal prior studies: no acute ischemia The study has been interpreted contemporaneously by me. . External Record Review External record reviewed: Inpatient record Prescription Management I considered prescription management with: Antibiotic and Other Discharge Plan Discharge Clinical Impression: Bronchitis Patient Disposition: Home, Self-Care Instructions: Acute Bronchitis (ED) Additional Instructions: return to ED for any worsening symptoms or concerns continue your inhaler and the prednisone stop taking azithromycin. start doxycycline take probiotic while on antibiotics stop taking cough medications just use tylenol over the counter follow up with your doctor in 2 days if not better Prescriptions: New benzonatate 100 mg capsule 100 mg PO TID PRN (Reason: cough) Qty: 14 0RF doxycycline hyclate 100 mg capsule 100 mg PO BID 7 Days Qty: 14 0RF cetirizine 10 mg tablet 10 mg PO DAILY PRN (Reason: allergy symptoms) Qty: 30 0RF fluticasone furoate 27.5 mcg/actuation spray,suspension 1 spray intranasal DAILY PRN (Reason: nasal congestion) Qty: 9.1 0RF Rx Instructions: into each nostril No Action aspirin 325 mg tablet,delayed release (DR/EC) 1 tab PO DAILY atorvastatin 40 mg tablet 1 tab PO DAILY hydrochlorothiazide 25 mg tablet 0.5 tab PO DAILY losartan 50 mg tablet 1 tab PO DAILY amlodipine 10 mg tablet 1 tab PO DAILY omeprazole 20 mg capsule,delayed release(DR/EC) 1 cap PO DAILY azithromycin [Zithromax] 250 mg tablet 250 mg PO DAILY 4 Days Qty: 4 0RF Rx Instructions: start on day 2 of therapy prednisone 50 mg tablet 50 mg PO DAILY Qty: 7 0RF albuterol sulfate 90 mcg/actuation HFA aerosol inhaler 2 puff inhalation Q6H PRN (Reason: shortness of breath or wheezing) Qty: 6.7 0RF amoxicillin 500 mg capsule 1,000 mg PO BID 5 Days Qty: 20 0RF azithromycin [Zithromax Z-Ford] 250 mg tablet See Rx Instructions .ROUTE .COMPLEX Qty: 6 0RF Rx Instructions: take 500 mg today (day 1), then 250 mg for 4 days (days 2-5) Interventions: ED Discharge Assessment Last Done: 11/27/22 12:16 Discharge Date/Time: 11/27/22 12:24
[2022-11-27] MEDS: Albuterol/Iprat 2.5/0.5MG 3 ML AMPUL.NEB INHALE (10:49)
[2022-11-27 10:51] VITALS: PULSE 79; RESP 16; O2SAT 97
[2022-11-27] MEDS: ondansetron HCL 4 MG/2 ML VIAL IVPUSH (10:58)
[2022-11-27 11:01] LABS: Basophils Percent Auto 0.1 % (0-2); Hematocrit 41.1 % (42.0-52.0); Hemoglobin 13.9 g/dl (14.0-18.0); Imm Gran Abs Auto 0.03 X10*3/uL (0.00-0.03); Imm Gran Pct Auto 0.4 % (0.0-0.4); Lymphocytes Absolute Auto 0.5 X10*3/uL (1.2-4.9); Lymphocytes Percent Auto 5.9 % (20-40); MANUAL DIFF FLAG SCAN; Mean Corpuscular HGB Conc 33.8 g/dl (31.0-36.0); Mean Corpuscular Hemoglobin 28.2 pg (27.0-33.0); Mean Corpuscular Volume 83.4 fL (80.0-98.0); Mean Platelet Volume 9.3 fL (9.4-12.4); Monocytes Absolute Auto 0.2 X10*3/uL (0.1-1.2); Monocytes Percent Auto 2.8 % (2-11); Neutrophils Absolute Auto 7.3 x10*3/uL (2.0-8.3); Neutrophils Percent Auto 90.8 % (45-73); Platelet Count 156 X10*3/uL (160-400); Red Blood Count 4.93 X10*6/uL (4.60-5.80); Red Cell Distribution Width 14.3 % (11.0-16.0); SCAN SMEAR FLAG 1
--- NOTE | 2022-11-27 11:01 | PC.NURSE ---
Wheezing sounds better post breathing tretment still congested some clearing with cough. Patient reports some nausea tolerated IVP zofran will reassess for effect
[2022-11-27 11:13] LABS: Alanine Aminotransferase 33 U/L (0-40); Albumin Level 4.3 g/dL (3.5-5.0); Alkaline Phosphatase 145 U/L (39-117); Anion Gap 16 (12-20); Aspartate Amino Transferase 24 U/L (5-37); Bilirubin Direct 0.2 mg/dL (0.0-0.5); Bilirubin Total 0.5 mg/dL (0.0-1.0); Blood Urea Nitrogen 15 mg/dL (9-16); C Reactive Protein < 0.10 mg/dL (< or = 0.50); Calcium 8.8 mg/dL (8.4-10.2); Carbon Dioxide 21 mmol/L (22-29); Chloride 102 mmol/L (96-108); Creatinine Clr Calc Pharmacy 61.8; Estimated Glomerular Filt Rate > 60; Glucose Random 224 mg/dL (60-115); Potassium 4.1 mmol/L (3.3-5.1); Sodium 135 mmol/L (135-145); Total Protein 6.9 g/dL (6.5-8.0)
--- NOTE | 2022-11-27 11:14 | PC.NURSE ---
Patient reports improved breathing remains tachypnic no distress noted.
[2022-11-27 11:34] VITALS: PULSE 64; RESP 22; O2SAT 95
--- NOTE | 2022-11-27 11:34 | PC.NURSE ---
Patient sleeping on room air VSS RR 22
[2022-11-27 11:40] LABS: SLIDE REVIEW VERIFIED
--- NOTE | 2022-11-27 12:07 | PC.NURSE ---
PAtient up ambulatory to bathroom independently will CTM
== END 2022-11-27 12:24 | disposition home or self-care (01) ==
PROVIDERS: Emergency Provider Emergency Medicine; PCP Internal Medicine
DX: J40 Bronchitis, not specified as acute or chronic (principal); R06.02 Shortness of breath; E11.22 Type 2 diabetes mellitus with diabetic chronic kidney disease; I12.9 Hypertensive chronic kidney disease with stage 1 through stage 4 chronic kidney disease, or unspecified chronic kidney disease; N18.2 Chronic kidney disease, stage 2 (mild); E78.00 Pure hypercholesterolemia, unspecified; Z86.73 Personal history of transient ischemic attack (TIA), and cerebral infarction without residual deficits; Z87.01 Personal history of pneumonia (recurrent); Z87.891 Personal history of nicotine dependence; Z79.82 Long term (current) use of aspirin; Z79.02 Long term (current) use of antithrombotics/antiplatelets; Z79.899 Other long term (current) drug therapy
CPT/HCPCS: 36415; 80048; 80076; 85025; 86140; 93005; 94640; 96374; 99284; J2405

== ENCOUNTER 2023-03-19 18:25 | Emergency (ER) | payer MEDICARE, SELFPAY ==
--- NOTE | ~2023-03-19 | CT_ITS ---
EXAMINATION: CT CERVICAL SPINE WITHOUT CONTRAST CLINICAL INFORMATION: Rule out fracture. Injury. COMPARISON: None. TECHNIQUE: Contiguous helical images of the cervical spine were obtained without IV contrast. Multiplanar reconstructions were performed. This CT examination was performed using dose optimization techniques as appropriate, variously including the following: *Automated exposure control *Adjustment of mA and/or kV according to patient size (this includes techniques or standardized protocols for targeted exams where dose is matched to indication/reason for exam; i.e. extremities or head) *Use of iterative reconstruction technique DLP: 463 mGy-cm FINDINGS: Straightening of the normal cervical lordosis. Slight anterolisthesis of C4 on C5 appearing degenerative. There is otherwise anatomic alignment of the vertebral bodies and posterior elements. The atlantoaxial and atlantooccipital articulations are intact. Vertebral body heights are maintained. There is multilevel intervertebral disc space narrowing with endplate osteophyte formation and facet arthropathy. No evidence of acute fracture. No prevertebral soft tissue swelling. There is no cervical lymphadenopathy. The visualized thyroid gland is unremarkable. The visualized base of the brain is unremarkable. The visualized lung apices are clear. CT/CT cervical spine wo IV con IMPRESSION: No evidence for acute injury to the cervical spine. Mild degenerative changes throughout.
--- NOTE | ~2023-03-19 | XR_ITS ---
EXAMINATION: XR LUMBOSACRAL SPINE CLINICAL INFORMATION: Back pain status post injury. COMPARISON: 11/16/2007 lumbar spine. TECHNIQUE: Three views of the lumbosacral spine. FINDINGS: Moderate to severe multilevel degenerative disc disease is seen from L3-L4 and L5-S1. Minimal grade 1 retrolisthesis is seen at L3-L4 and L4-L5. There is no acute fracture. The soft tissues are unremarkable. XR/XR lumbar spine 2-3V IMPRESSION: Moderate to severe multilevel degenerative disc disease and minimal grade 1 retrolisthesis at L3-L4 and L4-L5. No acute fracture.
[2023-03-19 19:40] VITALS: BP 147/53; PULSE 85; RESP 16; TEMP 36.6; O2SAT 94; BMI 27.5
--- NOTE | 2023-03-19 19:44 | ED_ITS ---
HPI - Back Pain/Injury General Chief Complaint: Back Pain/Injury Stated Complaint: back pain inj Time Seen by Provider: 03/19/23 23:17 Source: patient Mode of arrival: ambulatory Limitations: no limitations History of Present Illness HPI Narrative: 67 yold male presents to the ED for posterior neck pain and lower back pain since sunday. patient states sunday he slipped on a wet floor in a restuarant, but did not fall. patient states he grabbed a handle with his right arm and twisted his neck and lower back in an awkward positiion to prevent falling. patient denies body hitting the ground or hitting head. patient states no loss of conscisoness. patient denies any other physical complaints. Patient denies any urinary/bowel incontinence. Related Data Home Medications Medication Instructions Recorded Confirmed amlodipine 10 mg tablet 1 tab PO DAILY 09/25/22 09/25/22 aspirin 325 mg tablet,delayed 1 tab PO DAILY 09/25/22 09/25/22 release atorvastatin 40 mg tablet 1 tab PO DAILY 09/25/22 09/25/22 hydrochlorothiazide 25 mg tablet 0.5 tab PO DAILY 09/25/22 09/25/22 losartan 50 mg tablet 1 tab PO DAILY 09/25/22 09/25/22 omeprazole 20 mg capsule,delayed 1 cap PO DAILY 09/25/22 09/25/22 release Previous Rx's Medication Instructions Recorded amoxicillin 500 mg capsule 1,000 mg PO BID 5 days #20 caps 11/05/22 azithromycin 250 mg tablet See Rx Instructions PO .COMPLEX #6 11/05/22 (Zithromax Z-Ford) tabs albuterol sulfate 90 mcg/actuation 2 puff inhalation Q6H PRN 11/26/22 aerosol inhaler shortness of breath or wheezing #6.7 grams azithromycin 250 mg tablet 250 mg PO DAILY 4 days #4 tabs 11/26/22 (Zithromax) prednisone 50 mg tablet 50 mg PO DAILY #7 tabs 11/26/22 benzonatate 100 mg capsule 100 mg PO TID PRN cough #14 caps 11/27/22 cetirizine 10 mg tablet 10 mg PO DAILY PRN allergy 11/27/22 symptoms #30 tabs doxycycline hyclate 100 mg capsule 100 mg PO BID 7 days #14 caps 11/27/22 fluticasone furoate 27.5 1 spray intranasal DAILY PRN nasal 11/27/22 mcg/actuation nasal congestion #9.1 mL spray,suspension Allergies Allergy/AdvReac Type Severity Reaction Status Date / Time acetaminophen [Vicodin] Allergy Unknown Rash Verified 06/27/22 01:54 hydrocodone [Vicodin] Allergy Unknown Rash Verified 06/27/22 01:54 From VICODIN Allergy Mild RASH Uncoded 06/27/22 01:54 Review of Systems Review of Systems: neck and back pain. Yes all other systems are reviewed and are negative [facility] Past Medical History Medical History Acid reflux Arthritis Cardiomyopathy Chronic pain syndrome CKD (chronic kidney disease) stage 2, GFR 60-89 ml/min Coronary artery disease CVA (cerebral vascular accident) High cholesterol Hypertension Meniere disease Neck pain Osteoarthritis Pedal edema Pre-diabetes Pulmonary nodules Renal failure Restless leg syndrome Sleep apnea TIA (transient ischemic attack) Unspecified mood [affective] disorder Urinary frequency Surgical History History of ERCP History of hip replacement Previous back surgery Stented coronary artery Family History Family History Other Unspecified mood [affective] disorder Social History Social History Household Members: Spouse, Children and Other Household Members Other:: Grandson Alcohol intake: never Patient Tobacco Use Status: Former Tobacco user Tobacco use type: Cigarette Smoked in Last 30 Days: Yes Use of substances other than those prescribed or required for medical reasons: No Advance Directives: No Advance Directives Information Provided: Yes Physical Exam Vital Signs: Vital Signs: Last Vital Signs Temp 97.9 F 03/19/23 19:40 Pulse 84 03/19/23 23:33 Resp 14 03/19/23 23:33 BP 148/72 H 03/19/23 23:33 Pulse Ox 96 03/19/23 23:33 O2 Del Method Room Air 03/19/23 23:33 BMI result Body Mass Index 27.5 Const: General: cooperative, healthy appearing, comfortable, no acute distress, well developed, alert, awake and Physically active Orientation/consciousness: oriented to person, oriented to place, oriented to time and patient oriented x3 HEENT: Head: Yes normal to inspection, Yes No palpable skull fracture present, Yes normocephalic, Yes atraumatic and No abrasion Ears: hearing grossly normal bilaterally, external ears normal, TM's normal bilaterally, TM normal on the right, TM normal on the left, EAC's normal and mastoids normal Eyes: General: appearance normal, both eyes and all related structures Neck: Neck: Yes normal visual inspection, Yes full ROM, Yes no lymphad enopathy, Yes no meningeal signs, Yes trachea midline, Yes supple, No anterior neck swelling and Yes tender (posterior cervical tenderness) Chest: Chest palpation & inspection: normal inspection of the chest and normal palpation of entire chest wall Resp: Effort & Inspection: normal respiratory effort and able to speak in complete sentences Auscultation: clear to auscultation bilaterally Cardio: Jugular venous distension: no JVD Heart sounds: S1 normal heart sound present and S2 normal heart sound present GI: Inspection: Yes normal to inspection and No abdominal wall ecchymosis Palpation (GI): Soft to palpation, not firm, nontender, no guarding and not rigid : General: No CVA tenderness and Yes no CVA tenderness Back/Spine/Pelvis: Back: no CVA tenderness, No CVA tenderness and back tenderness (lumbar) Skin: General skin exam: no rashes or lesions noted and elasticity normal Neuro: General: oriented to person, oriented to place, oriented to time, patient oriented x3, gait normal, tone normal, moves all extremities, Normal light touch and pain sensation, no meningeal signs, no focal motor deficits, CN's II-XI intact bilaterally and normal sensation to monofilament Extrem: General: Yes normal to inspection and Yes full ROM Psych: Appearance: grossly normal, well kempt and not disheveled Course Course Course Narrative: Patient complains of neck pain and back pain after a near fall on a slippery floor in a local business Imaging is ordered This is rapid medical exam in triage pending full evaluation by provider in the ER Medical Decision Making Medical Decision Making MDM Narrative: 67-year-old male presents to ED for posterior neck pain and lower back pain after twisting body trying to break her fall. Patient denies any head trauma or body hitting the ground. Patient not in any distress. Patient images are normal. Patient already have oxycodone at home. Patient is safe for discharge Differential Diagnosis Differential Diagnoses: The differential diagnosis associated with the presentation includes (Cervical spine fracture. Cervical spine subluxation, lumbar spine fracture.) Independent Interpretation I performed an independent interpretation of an: Plain X-Ray Radiology Impression Discussion of test interpretation with radiology: I have reviewed the radiologist's reading. Prescription Management I considered prescription management with: Pain Medication Discharge Plan Discharge Clinical Impression: Lumbar radiculopathy, Cervical sprain Patient Disposition: Home, Self-Care Instructions: Cervical Strain (ED), Lumbar Radiculopathy (ED), Cervical Radiculopathy (ED), Cold Compress or Soak (ED) Additional Instructions: Return to the ED immediately for any urinary/bowel incontinence, dysuria, hematuria, flank pain, abdominal pain, nausea, vomiting, fever, chills, neck pain, neck stiffness, fever, chills, photophobia, headache, dizziness, or any other concerning symptoms. Continue taking oxycodone at home for pain relief. Please follow-up with the primary care provider Prescriptions: No Action aspirin 325 mg tablet,delayed release (DR/EC) 1 tab PO DAILY atorvastatin 40 mg tablet 1 tab PO DAILY hydrochlorothiazide 25 mg tablet 0.5 tab PO DAILY losartan 50 mg tablet 1 tab PO DAILY amlodipine 10 mg tablet 1 tab PO DAILY omeprazole 20 mg capsule,delayed release(DR/EC) 1 cap PO DAILY azithromycin [Zithromax] 250 mg tablet 250 mg PO DAILY 4 Days Qty: 4 0RF Rx Instructions: start on day 2 of therapy prednisone 50 mg tablet 50 mg PO DAILY Qty: 7 0RF albuterol sulfate 90 mcg/actuation HFA aerosol inhaler 2 puff inhalation Q6H PRN (Reason: shortness of breath or wheezing) Qty: 6.7 0RF amoxicillin 500 mg capsule 1,000 mg PO BID 5 Days Qty: 20 0RF azithromycin [Zithromax Z-Ford] 250 mg tablet See Rx Instructions .ROUTE .COMPLEX Qty: 6 0RF Rx Instructions: take 500 mg today (day 1), then 250 mg for 4 days (days 2-5) benzonatate 100 mg capsule 100 mg PO TID PRN (Reason: cough) Qty: 14 0RF doxycycline hyclate 100 mg capsule 100 mg PO BID 7 Days Qty: 14 0RF cetirizine 10 mg tablet 10 mg PO DAILY PRN (Reason: allergy symptoms) Qty: 30 0RF fluticasone furoate 27.5 mcg/actuation spray,suspension 1 spray intranasal DAILY PRN (Reason: nasal congestion) Qty: 9.1 0RF Rx Instructions: into each nostril Interventions: ED Discharge Assessment Last Done: 03/20/23 00:42 Discharge Date/Time: 03/20/23 00:42 Print Language: Guyanese
[2023-03-19 23:33] VITALS: BP 148/72; PULSE 84; RESP 14; O2SAT 96
== END 2023-03-20 00:42 | disposition home or self-care (01) ==
PROVIDERS: Emergency Provider Internal Medicine
DX: M54.16 Radiculopathy, lumbar region (principal); S13.4XXA Sprain of ligaments of cervical spine, initial encounter; X50.1XXA Overexertion from prolonged static or awkward postures, initial encounter; Z87.891 Personal history of nicotine dependence; Z79.899 Other long term (current) drug therapy; Z79.02 Long term (current) use of antithrombotics/antiplatelets; Z79.82 Long term (current) use of aspirin; Y93.89 Activity, other specified; Y92.511 Restaurant or cafe as the place of occurrence of the external cause; Y99.9 Unspecified external cause status
CPT/HCPCS: 72100; 72125; 99284

== ENCOUNTER 2023-10-11 16:32 | Emergency (ER) | payer MEDICARE, SELFPAY ==
--- NOTE | ~2023-10-11 | XR_ITS ---
EXAMINATION: XR LUMBOSACRAL SPINE CLINICAL INFORMATION: Diffuse lumbar pain COMPARISON: None available. TECHNIQUE: Three views of the lumbosacral spine. FINDINGS: There is mild straightening of lumbar lordosis. The vertebral heights and alignment is normal. There is loss of L3-L4, L4-L5 and L5-S1 disc heights with mild ventral spondylosis. No visible acute fracture, dislocation or subluxation seen. The paravertebral soft tissues are normal. SI joints are symmetrical and normal. There is moderate stool seen throughout the colon. XR/XR lumbar spine 2-3V IMPRESSION: Degenerative L3-L4, L4-L5 and L5-S1 disc changes with ventral spondylosis. No visible acute fracture or dislocation seen.
--- NOTE | ~2023-10-11 | CT_ITS ---
EXAMINATION: CT LUMBAR SPINE WITHOUT CONTRAST CLINICAL INFORMATION: History of multiple surgeries. Low back pain. COMPARISON: Lumbar spine 10/11/2023 TECHNIQUE: 2 mm thin axial and reformatted 2 minutes thin sagittal and coronal images of lumbar spine were obtained. This CT examination was performed using dose optimization techniques as appropriate, variously including the following: *Automated exposure control *Adjustment of mA and/or kV according to patient size (this includes techniques or standardized protocols for targeted exams where dose is matched to indication/reason for exam; i.e. extremities or head) *Use of iterative reconstruction technique DLP; 535 mGy-cm FINDINGS: On sagittal reconstructed images there is normal lumbar lordosis. The vertebral heights are normal. There is mild retrolisthesis L3 over L4 and L4-L5. There is loss of L3-L4, L4-L5 and L5/S1 disc heights with vacuum disc phenomena. No aggressive lytic or skull sclerotic process seen. There is L5 left laminotomy noted. The T12/L1, L1-L2, L2-L3 disc levels are unremarkable. L3-L4 disc level there is posterior spondylosis/bulge complex without spinal canal stenosis. The neural foramina are patent bilaterally. At L4-L5 disc level there is posterior spondylosis and bulge complex without spinal canal stenosis. There is mild bilateral facet joint arthropathy with mild bilateral lateral recess narrowing left greater than right At L5-S1 disc level there is mild posterior spondylosis/bulge complex without spinal canal stenosis. There is no aggressive lytic or sclerotic process seen. The paravertebral soft tissues are normal. CT/CT lumbar spine wo IV con IMPRESSION: There are degenerative disc changes L3-L4, L4-L5 and L5-S1 disc levels without aggressive lytic or sclerotic process seen.
[2023-10-11 16:51] VITALS: BP 127/78; PULSE 94; RESP 20; TEMP 36.6; O2SAT 96; BMI 27.5
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
[2023-10-11 18:08] LABS: MANUAL DIFF FLAG NO
[2023-10-11 18:26] LABS: Anion Gap 14 (12-20); Blood Urea Nitrogen 22 mg/dL (9-16); Calcium 9.6 mg/dL (8.4-10.2); Carbon Dioxide 24 mmol/L (22-29); Chloride 102 mmol/L (96-108); Creatinine Clr Calc Pharmacy 58.1; Estimated Glomerular Filt Rate > 60; Glucose Random 146 mg/dL (60-115); Magnesium 1.9 mg/dL (1.6-2.6); Potassium 4.3 mmol/L (3.3-5.1); Sodium 136 mmol/L (135-145)
[2023-10-11 18:27] LABS: Basophils Percent Auto 0.3 % (0-2); Eosinophils Absolute Auto 0.4 X10*3/uL (0.0-0.4); Eosinophils Percent Auto 3.4 % (0-4); Hematocrit 43.5 % (42.0-52.0); Hemoglobin 14.8 g/dl (14.0-18.0); Imm Gran Abs Auto 0.04 X10*3/uL (0.00-0.03); Imm Gran Pct Auto 0.3 % (0.0-0.4); Lymphocytes Absolute Auto 1.8 X10*3/uL (1.2-4.9); Lymphocytes Percent Auto 15.8 % (20-40); Mean Corpuscular Hemoglobin 28.3 pg (27.0-33.0); Mean Corpuscular Volume 83.2 fL (80.0-98.0); Mean Platelet Volume 9.5 fL (9.4-12.4); Monocytes Absolute Auto 1.3 X10*3/uL (0.1-1.2); Monocytes Percent Auto 11.1 % (2-11); Neutrophils Absolute Auto 7.9 x10*3/uL (2.0-8.3); Neutrophils Percent Auto 69.1 % (45-73); Platelet Count 203 X10*3/uL (160-400); Red Blood Count 5.23 X10*6/uL (4.60-5.80); Red Cell Distribution Width 13.9 % (11.0-16.0); White Blood Count 11.5 X10*3/uL (4.8-10.8)
[2023-10-11 19:16] VITALS: BP 138/64; PULSE 85; RESP 18; TEMP 37.1; O2SAT 95
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
[2023-10-11] MEDS: LORazepam 1 MG TABLET PO (20:32)
[2023-10-11] MEDS: HYDROmorphone HCl 1 MG/ML SYRINGE 0.5 MG IM (20:32)
--- NOTE | 2023-10-11 20:48 | PC.NURSE ---
Pt medicated as ordered, urine collected and sent, pt going to CT at this time.
[2023-10-11 20:49] LABS: Appearance Urine Clear; Color Urine Yellow; Glucose Urine UA Negative (Negative); Leukocyte Esterase Urine Negative (Negative); Nitrite Urine Negative (Negative); PH 5.5 (5.0-9.0); UMIC TRIGGER UACC YES; Urine Blood Negative (Negative); Urine Ketones Negative (Negative); Urine Protein 100 (2+) mg/dL (Neg-Trace)
[2023-10-11 20:57] LABS: Bacteria Urine None Seen (None Seen); Hyaline Casts Urine 0-2 /LPF (0-2); Squamous Epithelial Cell Urine 0-2 /HPF (0-2); WBC Urine 0-5 /HPF (0-5)
[2023-10-11] MEDS: Ketorolac Tromethamine 15 MG/ML VIAL IVPUSH (22:16)
== END 2023-10-11 23:25 | disposition home or self-care (01) ==
PROVIDERS: Physician Assistant Medical; Emergency Provider Emergency Medicine
DX: M54.50 Low back pain, unspecified (principal); Z79.899 Other long term (current) drug therapy
CPT/HCPCS: 36415; 72100; 72131; 80048; 81001; 83735; 85025; 96372; 96374; 99284; J1170; J1885

== ENCOUNTER 2023-11-23 17:32 | Emergency (ER) | payer MEDICARE, SELFPAY ==
--- NOTE | ~2023-11-23 | XR_ITS ---
EXAMINATION: XR CHEST 2 VIEWS CLINICAL INFORMATION: Shortness of breath. COMPARISON: Chest radiographs dated 11/25/2022. TECHNIQUE: Frontal and lateral views of the chest were obtained. FINDINGS: The heart, great vessels, pulmonary vasculature and mediastinum are normal. The lungs show no focal infiltrate, effusion or pneumothorax. There is no acute osseous abnormality. A left shoulder arthroplasty is noted. XR/XR chest 2V IMPRESSION: No active cardiopulmonary disease.
[2023-11-23 17:57] VITALS: BP 140/74; PULSE 74; RESP 20; TEMP 37; O2SAT 95
--- NOTE | 2023-11-23 17:58 | ED.URI ---
HPI - URI/Sore Throat General Chief Complaint: Upper Respiratory Symptoms Stated Complaint: flu or something been getting a lot worse Time Seen by Provider: 11/23/23 21:56 Source: patient Mode of arrival: ambulatory Limitations: no limitations History of Present Illness HPI Narrative: Patient is smoker with history of COPD been congested for last few days with cough running nose mucopurulent expectoration also sick for last 1 week no fever no chills wheeze in the nighttime no chest pain or palpitation Related Data Home Medications Medication Instructions Recorded Confirmed amlodipine 10 mg tablet 1 tab PO DAILY 09/25/22 09/25/22 aspirin 325 mg tablet,delayed 1 tab PO DAILY 09/25/22 09/25/22 release atorvastatin 40 mg tablet 1 tab PO DAILY 09/25/22 09/25/22 hydrochlorothiazide 25 mg tablet 0.5 tab PO DAILY 09/25/22 09/25/22 losartan 50 mg tablet 1 tab PO DAILY 09/25/22 09/25/22 omeprazole 20 mg capsule,delayed 1 cap PO DAILY 09/25/22 09/25/22 release Previous Rx's Medication Instructions Recorded amoxicillin 500 mg capsule 1,000 mg (2 x 500 mg) PO BID 5 11/05/22 days #20 caps azithromycin 250 mg tablet See Rx Instructions PO .COMPLEX #6 11/05/22 (Zithromax Z-Ford) tabs albuterol sulfate 90 mcg/actuation 2 puff inhalation Q6H PRN 11/26/22 aerosol inhaler shortness of breath or wheezing #6.7 grams azithromycin 250 mg tablet 250 mg PO DAILY 4 days #4 tabs 11/26/22 (Zithromax) prednisone 50 mg tablet 50 mg PO DAILY #7 tabs 11/26/22 benzonatate 100 mg capsule 100 mg PO TID PRN cough #14 caps 11/27/22 cetirizine 10 mg tablet 10 mg PO DAILY PRN allergy 11/27/22 symptoms #30 tabs doxycycline hyclate 100 mg capsule 100 mg PO BID 7 days #14 caps 11/27/22 fluticasone furoate 27.5 1 spray intranasal DAILY PRN nasal 11/27/22 mcg/actuation nasal congestion #9.1 mL spray,suspension albuterol sulfate 90 mcg/actuation 2 puff inhalation Q4-6H PRN 11/23/23 aerosol inhaler (ProAir HFA) shortness of breath or wheezing #8.5 grams benzonatate 200 mg capsule 200 mg PO TID PRN cough #30 caps 11/23/23 cefuroxime axetil 500 mg tablet 500 mg PO BID 7 days #14 tabs 11/23/23 Allergies Allergy/AdvReac Type Severity Reaction Status Date / Time acetaminophen [Vicodin] Allergy Unknown Rash Verified 11/23/23 18:00 hydrocodone [Vicodin] Allergy Unknown Rash Verified 11/23/23 18:00 From VICODIN Allergy Mild RASH Uncoded 06/27/22 01:54 Review of Systems Review of Systems: Yes all other systems are reviewed and are negative [facility] Past Medical History Medical History Urinary frequency Restless leg syndrome Pulmonary nodules Pre-diabetes Sleep apnea Osteoarthritis Neck pain Meniere disease CVA (cerebral vascular accident) Coronary artery disease CKD (chronic kidney disease) stage 2, GFR 60-89 ml/min Chronic pain syndrome Cardiomyopathy Arthritis Acid reflux Unspecified mood [affective] disorder Pedal edema Renal failure Hypertension High cholesterol TIA (transient ischemic attack) Surgical History History of ERCP History of hip replacement Stented coronary artery Previous back surgery Family History Family History Other Unspecified mood [affective] disorder Social History Social History Household Members: Spouse, Children and Other Household Members Other:: Grandson Alcohol intake: former Patient Tobacco Use Status: Former Tobacco user Tobacco use type: Cigarette Smoked in Last 30 Days: Yes Use of substances other than those prescribed or required for medical reasons: No Advance Directives: No Advance Directives Information Provided: No Physical Exam Vital Signs: Vital Signs: Last Vital Signs Temp 98.3 F 11/23/23 20:22 Pulse 66 11/23/23 20:22 Resp 16 11/23/23 20:22 BP 150/70 H 11/23/23 20:22 Pulse Ox 98 11/23/23 20:22 O2 Del Method Room Air 11/23/23 20:22 BMI result Body Mass Index 30.0 Appearance: Alert. Oriented X3. No acute distress. ENT: Pharynx normal. Oral Mucosa moist clear rhinorrhea Neck: Normal inspection. Neck supple. CVS: Normal heart rate and rhythm. Pulses normal. Respiratory: No respiratory distress. Equal air entry bilateral, no wheezing/rales/rhonchi prolonged expiration Abdomen: Soft and nontender. Skin: Skin warm and dry. Normal skin color. Normal skin turgor. Extremities: No lower extremity edema. No calf tenderness Neuro: Oriented X 3. Course Course Course Narrative: This is an RME: Additional HPI, ROS, PE not included below will be deferred to primary provider. Patient is a 68-year-old male who presents to the emergency department for evaluation of Few months with productive cough, shortness of breath, has COPD. Does not have any inhalers at home. Denies CP, pedal edema Plan: XR, viral testing Medications Administered Discontinued Medications Generic Name Dose Route Start Last Admin Trade Name Freq PRN Reason Stop Dose Admin Albuterol Sulfate 2 puff 11/23/23 22:21 11/23/23 22:27 Albuterol Sulfate 90 Mcg 8 Gm Inhaler INHALE 11/23/23 22:22 2 puff ONCE ONE Administration Benzonatate 200 mg 11/23/23 22:21 11/23/23 22:27 Benzonatate 100 Mg Capsule PO 11/23/23 22:22 200 mg ONCE ONE Administration Cefuroxime Axetil 500 mg 11/23/23 22:21 11/23/23 22:27 Cefuroxime Axetil 500 Mg Tablet PO 11/23/23 22:22 500 mg ONCE ONE Administration Medical Decision Making Medical Decision Making [facility] Narrative: Patient with chronic bronchitis , COVID flu negative x-ray negative discharge patient Ceftin and Differential Diagnosis Differential Diagnoses: The differential diagnosis associated with the presentation includes Lab Data [facility] Lab Attestation statement: I reviewed the patient's lab results. Labs: Lab Results 11/23/23 Range/Units 18:20 COVID-19 ([place]) Negative (Negative) COVID-19 Clin Com See Note Influenza Type A (CARLINE) Negative (Negative) Influenza Type B (CARLINE) Negative (Negative) Influenza A & B Note See Note Independent Interpretation I performed an independent interpretation of an: Plain X-Ray Radiology Impression Discussion of test interpretation with radiology: I have reviewed the radiologist's reading. Discharge Plan Discharge Clinical Impression: Bronchitis Patient Disposition: Home, Self-Care Instructions: Acute Bronchitis (ED) Additional Instructions: Use inhaler as prescribed Stops smoking Take antibiotic and cough drops as prescribed Your COVID and flu are negative Prescriptions: New benzonatate 200 mg capsule 200 mg PO TID PRN (Reason: cough) Qty: 30 0RF cefuroxime axetil 500 mg tablet 500 mg PO BID 7 Days Qty: 14 0RF albuterol sulfate [ProAir HFA] 90 mcg/actuation HFA aerosol inhaler 2 puff inhalation Q4-6H PRN (Reason: shortness of breath or wheezing) Qty: 8.5 0RF No Action aspirin 325 mg tablet,delayed release (DR/EC) 1 tab PO DAILY atorvastatin 40 mg tablet 1 tab PO DAILY hydrochlorothiazide 25 mg tablet 0.5 tab PO DAILY losartan 50 mg tablet 1 tab PO DAILY amlodipine 10 mg tablet 1 tab PO DAILY omeprazole 20 mg capsule,delayed release(DR/EC) 1 cap PO DAILY azithromycin [Zithromax] 250 mg tablet 250 mg PO DAILY 4 Days Qty: 4 0RF Rx Instructions: start on day 2 of therapy prednisone 50 mg tablet 50 mg PO DAILY Qty: 7 0RF albuterol sulfate 90 mcg/actuation HFA aerosol inhaler 2 puff inhalation Q6H PRN (Reason: shortness of breath or wheezing) Qty: 6.7 0RF amoxicillin 500 mg capsule 1,000 mg PO BID 5 Days Qty: 20 0RF azithromycin [Zithromax Z-Ford] 250 mg tablet See Rx Instructions .ROUTE .COMPLEX Qty: 6 0RF Rx Instructions: take 500 mg today (day 1), then 250 mg for 4 days (days 2-5) benzonatate 100 mg capsule 100 mg PO TID PRN (Reason: cough) Qty: 14 0RF doxycycline hyclate 100 mg capsule 100 mg PO BID 7 Days Qty: 14 0RF cetirizine 10 mg tablet 10 mg PO DAILY PRN (Reason: allergy symptoms) Qty: 30 0RF fluticasone furoate 27.5 mcg/actuation spray,suspension 1 spray intranasal DAILY PRN (Reason: nasal congestion) Qty: 9.1 0RF Rx Instructions: into each nostril Interventions: ED Discharge Assessment Last Done: 11/23/23 22:39 Discharge Date/Time: 11/23/23 22:40
[2023-11-23 18:49] LABS: COVID-19 Test Negative (Negative); IDNOW Serial# 58CA691E
[2023-11-23 18:51] LABS: IDNOW Serial# 9DB6401D; Influenza A Negative (Negative); Influenza B2 Negative (Negative)
[2023-11-23 20:22] VITALS: BP 150/70; PULSE 66; RESP 16; TEMP 36.8; O2SAT 98
[2023-11-23] MEDS: Albuterol Sulfate 90 MCG 8 GM INHALER 2 PUFF INHALE (22:27)
[2023-11-23] MEDS: Benzonatate 100 MG CAPSULE 200 MG PO (22:27)
[2023-11-23] MEDS: cefuroxime axetiL 500 MG TABLET PO (22:27)
== END 2023-11-23 22:40 | disposition home or self-care (01) ==
PROVIDERS: Nurse Practitioner Family; Emergency Provider Internal Medicine; PCP Internal Medicine
DX: J40 Bronchitis, not specified as acute or chronic (principal); R06.02 Shortness of breath; Z11.52 Encounter for screening for COVID-19
CPT/HCPCS: 71046; 87502; 87635; 99284

== ENCOUNTER 2023-12-29 15:38 | Emergency (ER) | payer MEDICARE, SELFPAY ==
--- NOTE | ~2023-12-29 | XR_ITS ---
EXAMINATION: XR CHEST CLINICAL INFORMATION: Shortness of breath. Fatigue. COMPARISON: Chest radiograph 11/23/2023 TECHNIQUE: 2 views of the chest were obtained. FINDINGS: Normal appearance of the cardiomediastinal structures. No effusions or pneumothoraces. No focal pulmonary consolidation. Normal pattern of pulmonary vasculature. Partially visualized left shoulder arthroplasty. Mild multilevel anterior endplate osteophytosis of the thoracic spine. Lateral view demonstrates an upper quadrant abdominal clips which may relate to prior cholecystectomy. XR/XR chest 2V IMPRESSION: No acute cardiopulmonary abnormalities.
[2023-12-29 16:44] VITALS: BP 142/61; PULSE 76; RESP 22; TEMP 36.8; O2SAT 96; BMI 28.6
--- NOTE | 2023-12-29 16:45 | ED_ITS ---
HPI - General Adult General Chief complaint: Weakness Stated complaint: weakness,coughing Time Seen by Provider: 12/29/23 19:30 Source: patient and family Mode of arrival: ambulatory Limitations: no limitations History of Present Illness HPI narrative: 68-year-old male with a history of COPD, bipolar disorder presents to the ER with complaints of 1 week of cough and shortness breath. Over the last 2 days he has had fatigue. No fevers, chills, chest pain, leg swelling or leg pain. Patient read out of his inhaler. No recent travel or sick contact. Related Data Home Medications Medication Instructions Recorded Confirmed amlodipine 10 mg tablet 1 tab PO DAILY 09/25/22 09/25/22 aspirin 325 mg tablet,delayed 1 tab PO DAILY 09/25/22 09/25/22 release atorvastatin 40 mg tablet 1 tab PO DAILY 09/25/22 09/25/22 hydrochlorothiazide 25 mg tablet 0.5 tab PO DAILY 09/25/22 09/25/22 losartan 50 mg tablet 1 tab PO DAILY 09/25/22 09/25/22 omeprazole 20 mg capsule,delayed 1 cap PO DAILY 09/25/22 09/25/22 release Previous Rx's Medication Instructions Recorded amoxicillin 500 mg capsule 1,000 mg (2 x 500 mg) PO BID 5 11/05/22 days #20 caps azithromycin 250 mg tablet See Rx Instructions PO .COMPLEX #6 11/05/22 (Zithromax Z-Ford) tabs albuterol sulfate 90 mcg/actuation 2 puff inhalation Q6H PRN 11/26/22 aerosol inhaler shortness of breath or wheezing #6.7 grams azithromycin 250 mg tablet 250 mg PO DAILY 4 days #4 tabs 11/26/22 (Zithromax) prednisone 50 mg tablet 50 mg PO DAILY #7 tabs 11/26/22 benzonatate 100 mg capsule 100 mg PO TID PRN cough #14 caps 11/27/22 cetirizine 10 mg tablet 10 mg PO DAILY PRN allergy 11/27/22 symptoms #30 tabs doxycycline hyclate 100 mg capsule 100 mg PO BID 7 days #14 caps 11/27/22 fluticasone furoate 27.5 1 spray intranasal DAILY PRN nasal 11/27/22 mcg/actuation nasal congestion #9.1 mL spray,suspension albuterol sulfate 90 mcg/actuation 2 puff inhalation Q4-6H PRN 11/23/23 aerosol inhaler (ProAir HFA) shortness of breath or wheezing #8.5 grams benzonatate 200 mg capsule 200 mg PO TID PRN cough #30 caps 11/23/23 cefuroxime axetil 500 mg tablet 500 mg PO BID 7 days #14 tabs 11/23/23 benzonatate 200 mg capsule 200 mg PO TID PRN cough #20 caps 12/29/23 prednisone 20 mg tablet 40 mg (2 x 20 mg) PO DAILY #8 tabs 12/29/23 Allergies Allergy/AdvReac Type Severity Reaction Status Date / Time acetaminophen [Vicodin] Allergy Unknown Rash Verified 12/29/23 16:48 hydrocodone [Vicodin] Allergy Unknown Rash Verified 12/29/23 16:48 From VICODIN Allergy Mild RASH Uncoded 12/29/23 16:48 Review of Systems 2 Review of Systems: Yes all other systems are reviewed and are negative Constitutional: Constitutional: Reports no additional constitutional complaints, Denies body ache(s), Denies chills, Reports fatigue, Denies fever(s), Denies headache(s) and Reports weakness Eyes: Eyes: Reports no additional eye complaints and Denies change in vision ENT: Reports system reviewed and no additional complaints, except as documented, Denies dizziness, Denies headache(s), Denies nasal congestion, Denies nasal discharge and Denies neck pain Cardiovascular: Cardiovascular: Reports no additional cardiovascular complaints, Denies chest pain, Denies leg edema and Reports dyspnea Respiratory: Respiratory: Reports no additional respiratory complaints, Reports cough and Reports dyspnea Gastrointestinal: Gastrointestinal: Reports no additional gastrointestinal complaints, Denies abdominal pain, Denies diarrhea, Denies nausea and Denies vomiting Genitourinary: Genitourinary: Denies urinary incontinence Musculoskeletal: Musculoskeletal: Reports no additional musculoskeletal complaints, Denies back pain, Denies arthralgias, Denies joint swelling, Denies neck pain, Denies numbness and Denies tingling Integumentary/Breasts: Skin/Breast: Reports system reviewed and no additional complaints, except as docu and Denies rash Neurologic: Reports system reviewed and no additional complaints, except as documented, Denies Abnormal speech present, Denies dizziness, Denies headache(s), Denies numbness, Denies tingling and Reports weakness Endocrine: Endocrine: Reports fatigue PMFSH Past Medical History Attestation statement: The following information was validated with the patient. Source: old records reviewed and nursing notes reviewed Medical History Urinary frequency Restless leg syndrome Pulmonary nodules Pre-diabetes Sleep apnea Osteoarthritis Neck pain Meniere disease CVA (cerebral vascular accident) Coronary artery disease CKD (chronic kidney disease) stage 2, GFR 60-89 ml/min Chronic pain syndrome Cardiomyopathy Arthritis Acid reflux Unspecified mood [affective] disorder Pedal edema Renal failure Hypertension High cholesterol TIA (transient ischemic attack) Surgical History History of ERCP History of hip replacement Stented coronary artery Previous back surgery Family History Family History Other Unspecified mood [affective] disorder Social History Social History Household Members: Spouse, Children and Other Household Members Other:: Grandson Alcohol intake: former Patient Tobacco Use Status: Former Tobacco user Tobacco use type: Cigarette Smoked in Last 30 Days: Yes Use of substances other than those prescribed or required for medical reasons: No Advance Directives: No Advance Directives Information Provided: No Physical Exam ED Vital Signs: Vital Signs - 24 hr 12/29/23 16:44 12/29/23 18:55 12/29/23 21:50 Temperature 98.2 F 98.0 F 97.7 F Pulse Rate 76 76 74 Respiratory Rate 22 H 18 18 Blood Pressure 142/61 H 136/74 144/66 H Pulse Oximetry 96 95 95 Oxygen Delivery Method Room Air Room Air Room Air BMI result Body Mass Index 28.6 Const General: cooperative, healthy appearing, comfortable and no acute distress Orientation/consciousness: patient oriented x3 Limitations: no limitations HENMT Head: Yes normal to inspection Ears: hearing grossly normal bilaterally and TM's normal bilaterally General nose exam: Normal external nose present Face and sinus: Yes normal facial exam Mouth: Normal oral and palatal mucosa present Throat: Yes posterior oropharynx normal, Yes tonsils normal and Yes uvula midline Eyes General: appearance normal, both eyes and all related structures Pupils: Equal, round and reactive pupils present Neck Neck: Yes normal visual inspection, Yes full ROM, Yes no lymphadenopathy and Yes no meningeal signs Chest Chest palpation & inspection: normal inspection of the chest Resp Effort & Inspection: normal respiratory effort Auscultation: wheezes Cardio Rate: regular rate Rhythm: regular rhythm Peripheral pulses: Peripheral pulses 2+ throughout GI Inspection: Yes normal to inspection Palpation (GI): Soft to palpation and nontender Auscultation: normal bowel sounds Back/Spine/Pelvis Thoracic/Lumbar Spine: thoracic and lumbar spine normal to inspection Skin General skin exam: no rashes or lesions noted Neuro General: patient oriented x3, no meningeal signs, no focal motor deficits and normal sensation to monofilament Cranial nerves: Yes Equal, round and reactive pupils present Cognition (Neuro): normal cognition Speech: No Abnormal speech present Gait exam (Neuro): Normal gait present Motor exam (neuro): 5/5 motor strength present throughout Extrem General: Yes normal to inspection, Yes no pedal edema and Yes no calf tenderness Course Course Course Narrative: This is a rapid medical exam: Additional HPI, ROS, PE not included below will be deferred to primary provider. Patient is a 68-year-old male presenting to the ED with complaint of cough and fatigue. Slept 16 hours yesterday which is not typical for him. Occassional clear sputum. Denies fevers/chills. Plan: viral swabs, CXR Reevaluation(s) Reevaluation #1: Labs are unremarkable. Chest x-ray shows no acute finding. EKG is nonischemic. Viral testing is negative. Patient will be treated with albuterol MDI and prednisone course. Reviewed worrisome signs and symptoms of when to return to the emergency room. Comfortable plan for discharge home Medications Administered Discontinued Medications Generic Name Dose Route Start Last Admin Trade Name Moq PRN Reason Stop Dose Admin Albuterol Sulfate 2 puff 12/29/23 19:52 12/29/23 20:12 Albuterol Sulfate 90 Mcg 8 Gm Inhaler INHALE 12/29/23 19:53 2 puff ONCE ONE Administration Prednisone 60 mg 12/29/23 19:52 12/29/23 20:12 Prednisone 20 Mg Tablet PO 12/29/23 19:53 60 mg ONCE ONE Administration Medical Decision Making Medical Decision Making MDM Narrative: 68-year-old male with a history of COPD, bipolar disorder presents to the ER with complaints of 1 week of cough and shortness breath. Over the last 2 days he has had fatigue. No fevers, chills, chest pain, leg swelling or leg pain. Patient read out of his inhaler. No recent travel or sick contact. Mild exp wheezing VSS Exam is benign Will need labs, EKG, chest x-ray, viral testing Will give albuterol MDI, prednisone Differential Diagnosis Differential Diagnoses: The differential diagnosis associated with the presentation includes Pneumonia, viral syndrome, influenza, COPD exacerbation Low concern for PE, ACS-symptoms for 1 week with flat troponin and nonischemic EKG. No hypoxia, no tachypnea, no tachycardia, no clinical findings concerning for DVT, no risk factors for DVT or PE. Admission/Observation Consideration of admission/observation: Escalation of care including admission/observation considered Patient with bronchitis and likely COPD flare with no hypoxia or tachypnea. Can be discharged home with oral prednisone and albuterol MDI. Does not require supplemental oxygen and or admission Lab Data MDM Lab Attestation statement: I reviewed the patient's lab results. 12/29/23 20:44 12/29/23 20:44 Labs: Lab Results 12/29/23 12/29/23 Range/Units 16:52 20:44 WBC 11.5 H (4.8-10.8) X10*3/uL RBC 4.70 (4.60-5.80) X10*6/uL Hgb 13.5 L (14.0-18.0) g/dl Hct 39.8 L (42.0-52.0) % MCV 84.7 (80.0-98.0) fL MCH 28.7 (27.0-33.0) pg MCHC 33.9 (31.0-36.0) g/dl RDW 14.5 (11.0-16.0) % Plt Count 169 (160-400) X10*3/uL MPV 9.0 L (9.4-12.4) fL Immature Gran % (Auto) 0.7 H (0.0-0.4) % Neut % (Auto) 70.3 (45-73) % Lymph % (Auto) 17.8 L (20-40) % [place] % (Auto) 9.6 (2-11) % Eos % (Auto) 1.3 (0-4) % Baso % (Auto) 0.3 (0-2) % Lymph # (Auto) 2.1 (1.2-4.9) X10*3/uL [place] # (Auto) 1.1 (0.1-1.2) X10*3/uL Eos # (Auto) 0.2 (0.0-0.4) X10*3/uL Baso # (Auto) 0.0 (0.0-0.2) X10*3/uL Abs Immat Gran (auto) 0.08 H (0.00-0.03) X10*3/uL Absolute Neuts (auto) 8.1 (2.0-8.3) x10*3/uL Absolute Nucleated RBC 0.000 (0.0-0.012) X10*3/uL Nucleated RBC % (auto) 0.0 (0.0-0.2) /100WBC Sodium 140 (135-145) mmol/L Potassium 3.3 (3.3-5.1) mmol/L Chloride 106 (96-108) mmol/L Carbon Dioxide 26 (22-29) mmol/L Anion Gap 11 L (12-20) BUN 20 H (9-16) mg/dL Creatinine 1.25 (0.5-1.4) mg/dL Estim Creat Clear Calc 54.5 Estimated GFR 57 Random Glucose 104 (60-115) mg/dL Calcium 8.9 D (8.4-10.2) mg/dL Total Bilirubin 0.5 (0.0-1.0) mg/dL Direct Bilirubin 0.2 (0.0-0.5) mg/dL AST 14 (5-37) U/L ALT 16 (0-40) U/L Alkaline Phosphatase 110 (39-117) U/L Troponin I High Sens 7.3 (<3.5-35.0) ng/L Total Protein 6.8 (6.5-8.0) g/dL Albumin 4.1 (3.5-5.0) g/dL Influenza Type A (PCR) NEGATIVE (Negative) Influenza Type B (PCR) NEGATIVE (Negative) RSV RNA Qual (PCR) NEGATIVE (Negative) SARS-CoV-2 RNA (RT-PCR) NEGATIVE (Negative) Independent Interpretation I performed an independent interpretation of an: EKG and Plain X-Ray Interpretation: I independently reviewed the chest x-ray and agree with the radiology report I independently reviewed the EKG which shows normal sinus rhythm with rate 80, normal [place], normal QRS normal QT Radiology Impression Discussion of test interpretation with radiology: I have reviewed the radiologist's reading. Radiologist Impression: [address] [address] XRay Report Signed Patient: Walt Hernandez MR#: [id number] : 1955 Acct:[id number] Age/Sex: 68 / M ADM Date: 12/29/23 Loc: HO.ED Attending Dr: Ordering Physician: Melina Raymundo NP Date of Service: 12/29/23 Procedure(s): XR chest 2V Accession Number(s): [id number] cc: Physician,Unknown ; Melina Raymundo NP~ EXAMINATION: XR CHEST CLINICAL INFORMATION: Shortness of breath. Fatigue. COMPARISON: Chest radiograph 11/23/2023 TECHNIQUE: 2 views of the chest were obtained. FINDINGS: Normal appearance of the cardiomediastinal structures. No effusions or pneumothoraces. No focal pulmonary consolidation. Normal pattern of pulmonary vasculature. Partially visualized left shoulder arthroplasty. Mild multilevel anterior endplate osteophytosis of the thoracic spine. Lateral view demonstrates an upper quadrant abdominal clips which may relate to prior cholecystectomy. XR/XR chest 2V IMPRESSION: No acute cardiopulmonary abnormalities. Independent Historian Clinical information obtained from an independent historian. History obtained from or confirmed by: Spouse Tests considered The following testing was considered but not selected: Low concern for PE. Does not require CTA imaging Prescription Management I considered prescription management with: Antibiotic Discharge Plan Discharge Clinical Impression: Bronchitis Patient Disposition: Home, Self-Care Instructions: Acute Bronchitis (ED) Additional Instructions: Use the inhaler 2 puffs every 4 hours as needed Start prednisone tomorrow Use the cough medication as needed Return for worsening symptoms Prescriptions: New prednisone 20 mg tablet 40 mg PO DAILY Qty: 8 0RF benzonatate 200 mg capsule 200 mg PO TID PRN (Reason: cough) Qty: 20 0RF No Action aspirin 325 mg tablet,delayed release (DR/EC) 1 tab PO DAILY atorvastatin 40 mg tablet 1 tab PO DAILY hydrochlorothiazide 25 mg tablet 0.5 tab PO DAILY losartan 50 mg tablet 1 tab PO DAILY amlodipine 10 mg tablet 1 tab PO DAILY omeprazole 20 mg capsule,delayed release(DR/EC) 1 cap PO DAILY azithromycin [Zithromax] 250 mg tablet 250 mg PO DAILY 4 Days Qty: 4 0RF Rx Instructions: start on day 2 of therapy prednisone 50 mg tablet 50 mg PO DAILY Qty: 7 0RF albuterol sulfate 90 mcg/actuation HFA aerosol inhaler 2 puff inhalation Q6H PRN (Reason: shortness of breath or wheezing) Qty: 6.7 0RF amoxicillin 500 mg capsule 1,000 mg PO BID 5 Days Qty: 20 0RF azithromycin [Zithromax Z-Ford] 250 mg tablet See Rx Instructions .ROUTE .COMPLEX Qty: 6 0RF Rx Instructions: take 500 mg today (day 1), then 250 mg for 4 days (days 2-5) benzonatate 100 mg capsule 100 mg PO TID PRN (Reason: cough) Qty: 14 0RF doxycycline hyclate 100 mg capsule 100 mg PO BID 7 Days Qty: 14 0RF cetirizine 10 mg tablet 10 mg PO DAILY PRN (Reason: allergy symptoms) Qty: 30 0RF fluticasone furoate 27.5 mcg/actuation spray,suspension 1 spray intranasal DAILY PRN (Reason: nasal congestion) Qty: 9.1 0RF Rx Instructions: into each nostril benzonatate 200 mg capsule 200 mg PO TID PRN (Reason: cough) Qty: 30 0RF cefuroxime axetil 500 mg tablet 500 mg PO BID 7 Days Qty: 14 0RF albuterol sulfate [ProAir HFA] 90 mcg/actuation HFA aerosol inhaler 2 puff inhalation Q4-6H PRN (Reason: shortness of breath or wheezing) Qty: 8.5 0RF Referrals: Physician,Unknown J [Primary Care Provider] - 1 week Interventions: ED Discharge Assessment Last Done: 12/29/23 21:50
[2023-12-29 17:34] LABS: Influenza A PCR NEGATIVE (Negative); Influenza B PCR NEGATIVE (Negative); Resp Syncy Virus RNA Qual PCR NEGATIVE (Negative); SARS COV2 PCR INHOUSE NEGATIVE (Negative)
[2023-12-29 18:55] VITALS: BP 136/74; PULSE 76; RESP 18; TEMP 36.7; O2SAT 95
--- NOTE | 2023-12-29 19:53 | ECG_ITS ---
Test Reason : SOB Blood Pressure : / mmHG Vent. Rate : 080 BPM Atrial Rate : 080 BPM P-R Int : 146 ms QRS Dur : 094 ms QT Int : 400 ms P-R-T Axes : 062 021 067 degrees QTc Int : 461 ms Normal sinus rhythm Normal ECG When compared with ECG of 27-NOV-2022 10:47, No significant change was found Referred By: Tawnya West Electronically Signed By:RICH CURRAN MD
[2023-12-29] MEDS: predniSONE 20 MG TABLET 60 MG PO (20:12)
[2023-12-29] MEDS: Albuterol Sulfate 90 MCG 8 GM INHALER 2 PUFF INHALE (20:12)
[2023-12-29 20:50] LABS: MANUAL DIFF FLAG NO
[2023-12-29 20:52] LABS: Basophils Percent Auto 0.3 % (0-2); Eosinophils Absolute Auto 0.2 X10*3/uL (0.0-0.4); Eosinophils Percent Auto 1.3 % (0-4); Hematocrit 39.8 % (42.0-52.0); Hemoglobin 13.5 g/dl (14.0-18.0); Imm Gran Abs Auto 0.08 X10*3/uL (0.00-0.03); Imm Gran Pct Auto 0.7 % (0.0-0.4); Lymphocytes Absolute Auto 2.1 X10*3/uL (1.2-4.9); Lymphocytes Percent Auto 17.8 % (20-40); Mean Corpuscular HGB Conc 33.9 g/dl (31.0-36.0); Mean Corpuscular Hemoglobin 28.7 pg (27.0-33.0); Mean Corpuscular Volume 84.7 fL (80.0-98.0); Monocytes Absolute Auto 1.1 X10*3/uL (0.1-1.2); Monocytes Percent Auto 9.6 % (2-11); Neutrophils Absolute Auto 8.1 x10*3/uL (2.0-8.3); Neutrophils Percent Auto 70.3 % (45-73); Platelet Count 169 X10*3/uL (160-400); Red Cell Distribution Width 14.5 % (11.0-16.0); White Blood Count 11.5 X10*3/uL (4.8-10.8)
[2023-12-29 21:06] LABS: Alanine Aminotransferase 16 U/L (0-40); Albumin Level 4.1 g/dL (3.5-5.0); Alkaline Phosphatase 110 U/L (39-117); Anion Gap 11 (12-20); Aspartate Amino Transferase 14 U/L (5-37); Bilirubin Direct 0.2 mg/dL (0.0-0.5); Bilirubin Total 0.5 mg/dL (0.0-1.0); Blood Urea Nitrogen 20 mg/dL (9-16); Calcium 8.9 mg/dL (8.4-10.2); Carbon Dioxide 26 mmol/L (22-29); Chloride 106 mmol/L (96-108); Creatinine Clr Calc Pharmacy 54.5; Estimated Glomerular Filt Rate 57; Glucose Random 104 mg/dL (60-115); Potassium 3.3 mmol/L (3.3-5.1); Sodium 140 mmol/L (135-145); Total Protein 6.8 g/dL (6.5-8.0)
[2023-12-29 21:13] LABS: Troponin-I High Sensitivity 7.3 ng/L (<3.5-35.0)
[2023-12-29 21:50] VITALS: BP 144/66; PULSE 74; RESP 18; TEMP 36.5; O2SAT 95
== END 2023-12-29 21:53 | disposition home or self-care (01) ==
PROVIDERS: Nurse Practitioner Family; Registered Nurse Emergency; Emergency Provider Internal Medicine
DX: R06.02 Shortness of breath (principal); J44.9 Chronic obstructive pulmonary disease, unspecified; R05.9 Cough, unspecified; Z11.52 Encounter for screening for COVID-19; Z20.828 Contact with and (suspected) exposure to other viral communicable diseases; I12.9 Hypertensive chronic kidney disease with stage 1 through stage 4 chronic kidney disease, or unspecified chronic kidney disease; N18.9 Chronic kidney disease, unspecified
CPT/HCPCS: 0241U; 36415; 71046; 80048; 80076; 84484; 85025; 93005; 99284

== ENCOUNTER → 2023-12-29 19:53 | Outpatient (BNV) | payer MEDICARE, SELFPAY | PROVIDERS: Emergency Provider Internal Medicine; Visit Provider Internal Medicine Cardiovascular Disease | DX: R06.02 Shortness of breath (principal) | CPT/HCPCS: 93010 ==